=== PATIENT | female | born 1955 | race Caucasian/White ===

== ENCOUNTER 2018-10-05 08:20 | Day surgery (SDC) | payer BC, MEDICARE ==
[~2018-10-05] VITALS: Ht 157.5 cm; Wt 57.7 kg
[~2018-10-05 08:20] MED LIST: ASPI325 PO; ATOR10 PO; CLOP75 PO; Humalog100 UNIT/1 SC; INSLIS75I; INSULANI; INSULANPEN; LISI5 PO; METO25 PO
[2018-10-05] MEDS ORDERED: LOSA25 (08:57)
--- NOTE | 2018-10-05 09:14 | NUR ---
10/05/18 0914 Viktor Warren CALL LIGHT WITHIN REACH
== END 2018-10-05 10:31 | disposition home or self-care (01) ==
LOC: ORSCSDS 08:20
PROVIDERS: Internal Medicine Gastroenterology
PROC: 0DBL8ZX Excision of Transverse Colon, Via Natural or Artificial Opening Endoscopic, Diagnostic (ICD-10-PCS; principal; 2018-10-05 09:45)
DX: Z12.11 Encounter for screening for malignant neoplasm of colon (principal); D12.3 Benign neoplasm of transverse colon; E11.9 Type 2 diabetes mellitus without complications; I25.10 Atherosclerotic heart disease of native coronary artery without angina pectoris; Z79.899 Other long term (current) drug therapy
CPT/HCPCS: 82947; 88305; J7120

== ENCOUNTER → 2019-05-24 | Outpatient (CLI) | payer MEDICARE, OTHER ==
[~2019-05-24] MED LIST changes: +LOSA25
[2019-05-26 15:07] LABS: HPV 16 Negative (Negative); HPV 18 Negative (Negative); HPV OTHER HR TYPES Negative (Negative)
== END ==
LOC: LAB 15:32 → LAB SHORT 15:32
PROVIDERS: Obstetrics & Gynecology Gynecology
DX: Z91.89 Other specified personal risk factors, not elsewhere classified (principal)
CPT/HCPCS: 87624; G0123

== ENCOUNTER → 2020-01-24 | Outpatient (CLI) | payer OTHER ==
[2020-01-24 16:13] LABS: Microalb/Creat Ratio UR, Rand 436.275 mg/g (0.000-30.000)
== END | disposition home or self-care (01) ==
LOC: LAB EV 11:30
PROVIDERS: Hospitalist
DX: I10 Essential (primary) hypertension (principal)
CPT/HCPCS: 82043; 82570

== ENCOUNTER 2020-11-25 16:54 | Observation (INO) | payer OTHER ==
[~2020-11-25] VITALS: Ht 154.9 cm; Wt 50.2 kg
[~2020-11-25 16:54] MED LIST changes: -ASPI325 PO; +ASPI325EC PO; +Allergy Relief10 M1 PO; +BASAGLAR K100 UNIT/1 SC; +Fibercon625 MG PO; -INSULANPEN; +LEVSOD25 PO; -LOSA25; +LOSA25 PO; +MAGNESIUM OXID500 MG PO; +OYSTER SHELL 51 EACH PO
[2020-11-25 17:32] LABS: Base Excess Venous 5.3 mmol/L; PCO2 Venous 52.7 mmHg (38-42); pH Blood Venous 7.37 (7.34-7.37)
[2020-11-25 17:38] LABS: BASOPHILS ABSOLUTE AUTO 0.02 K/mm3 (0.00-0.23); BASOPHILS PERCENT AUTO 0 % (0-2); EOSINOPHILS ABSOLUTE AUTO 0.05 K/mm3 (0.00-0.68); EOSINOPHILS PERCENT AUTO 1 % (0-6); Hematocrit 42.5 % (33.0-51.0); Hemoglobin 14.3 g/dL (11.5-16.0); IMMATURE GRAN ABSOLUTE AUTO 0.03 K/mm3 (0.00-0.10); IMMATURE GRAN PERCENT AUTO 0 % (0-1); LYMPHOCYTES ABSOLUTE AUTO 1.24 K/mm3 (0.84-5.20); LYMPHOCYTES PERCENT AUTO 18 % (21-46); MONOCYTES ABSOLUTE AUTO 0.43 K/mm3 (0.16-1.47); MONOCYTES PERCENT AUTO 6 % (4-13); Mean Corpuscular HGB 28.3 pg (26.0-34.0); Mean Corpuscular HGB Conc 33.6 g/dL (31.5-36.5); Mean Corpuscular Volume 84 fL (80-100); Mean Platelet Volume 11.7 fL (9.1-12.4); NEUTROPHILS ABSOLUTE AUTO 4.97 K/mm3 (1.96-9.15); NEUTROPHILS PERCENT AUTO 74 % (41-73); Platelet Count 201 K/mm3 (150-400); RDW Coefficient Variation 13.6 % (11.7-14.2); Red Blood Cell Count 5.05 M/mm3 (3.80-5.20); White Blood Cell Count 6.74 K/mm3 (4.00-11.30)
[2020-11-25] MEDS ORDERED: FURO40 PO (17:50)
[2020-11-25] MEDS ORDERED: ALDACTONE25 MG (17:51)
[2020-11-25 18:02] LABS: Magnesium, Blood 2.4 mg/dL (1.6-2.4)
[2020-11-25 18:19] LABS: Albumin, Blood 3.9 g/dL (3.4-5.0); Albumin/Globulin Ratio 1.2 (0.8-1.8); Bilirubin, Total 1.1 mg/dL (0.1-1.0); Bun/Creatinine Ratio 32.9 (12.0-20.0); Creatinine, Blood 1.58 mg/dL (0.40-1.00); Globulin, Blood 3.2 g/dL (2.2-4.0); Potassium, Blood 5.2 mmol/L (3.5-5.5); Total Protein, Blood 7.1 g/dL (6.4-8.2)
[2020-11-25 20:14] LABS: Glucose, Blood 570 mg/dL (70-99)
[2020-11-25 21:11] LABS: Anion Gap 7 mmol/L (6-16); Blood Urea Nitrogen 47 mg/dL (8-24); Bun/Creatinine Ratio 33.1 (12.0-20.0); CO2, Blood 31 mmol/L (21-32); Calcium, Blood 8.4 mg/dL (8.5-10.1); Chloride, Blood 94 mmol/L (98-108); Creatinine, Blood 1.42 mg/dL (0.40-1.00); Glomerular Filtration Rate 40 (60-); Phosphorus, Blood 3.4 mg/dL (2.5-4.9); Potassium, Blood 3.9 mmol/L (3.5-5.5)
[2020-11-25 21:12] LABS: Sodium, Blood 132 mmol/L (136-145)
[2020-11-26 00:40] LABS: Source, Urine Clean Catch
[2020-11-26 00:44] LABS: Appearance, Urine Clear (Clear); Bilirubin, Urine Neg (Neg); Blood, Urine Neg (Neg); Color, Urine Yellow (P-Yellow); Glucose Qualitative, Urine 4+ (Neg); Ketones, Urine Neg (Neg); Leukocyte Esterase, Urine Neg (Neg); Nitrite, Urine Neg (Neg); Protein, Urine Neg (Neg); Urobilinogen, Urine NORM (Normal)
[2020-11-26 04:15] LABS: BASOPHILS ABSOLUTE AUTO 0.03 K/mm3 (0.00-0.23); BASOPHILS PERCENT AUTO 1 % (0-2); EOSINOPHILS ABSOLUTE AUTO 0.12 K/mm3 (0.00-0.68); EOSINOPHILS PERCENT AUTO 2 % (0-6); Hematocrit 34.9 % (33.0-51.0); Hemoglobin 12.2 g/dL (11.5-16.0); IMMATURE GRAN ABSOLUTE AUTO 0.01 K/mm3 (0.00-0.10); IMMATURE GRAN PERCENT AUTO 0 % (0-1); LYMPHOCYTES ABSOLUTE AUTO 2.16 K/mm3 (0.84-5.20); LYMPHOCYTES PERCENT AUTO 41 % (21-46); MONOCYTES ABSOLUTE AUTO 0.45 K/mm3 (0.16-1.47); MONOCYTES PERCENT AUTO 9 % (4-13); Mean Corpuscular HGB 28.2 pg (26.0-34.0); Mean Corpuscular Volume 81 fL (80-100); Mean Platelet Volume 11.4 fL (9.1-12.4); NEUTROPHILS ABSOLUTE AUTO 2.53 K/mm3 (1.96-9.15); NEUTROPHILS PERCENT AUTO 48 % (41-73); Platelet Count 178 K/mm3 (150-400); RDW Coefficient Variation 13.3 % (11.7-14.2); RDW Standard Deviation 39.3 fL (35.1-46.3); Red Blood Cell Count 4.33 M/mm3 (3.80-5.20)
[2020-11-26 04:43] LABS: Albumin, Blood 2.8 g/dL (3.4-5.0); Anion Gap 7 mmol/L (6-16); Blood Urea Nitrogen 36 mg/dL (8-24); Bun/Creatinine Ratio 32.4 (12.0-20.0); CO2, Blood 31 mmol/L (21-32); Calcium, Blood 8.1 mg/dL (8.5-10.1); Chloride, Blood 106 mmol/L (98-108); Creatinine, Blood 1.11 mg/dL (0.40-1.00); Glomerular Filtration Rate 53 (60-); Glucose, Blood 71 mg/dL (70-99); Phosphorus, Blood 3.4 mg/dL (2.5-4.9); Potassium, Blood 3.3 mmol/L (3.5-5.5); Sodium, Blood 144 mmol/L (136-145)
--- NOTE | 2020-11-26 06:02 | NUR ---
SHIFT SUMMARY PT RESTED WELL THROUGH NIGHT AFTER BEING ADMITTED. ALERT AND ORIENTED - ABLE TO MAKE NEEDS KNOWN. TELENSR, SATS >90% ON ROOM AIR. Q4 CBG CHECKS. CBG DID DROP TO 44 AT ONE POINT, GAVE 25ML OF D50, AND ENCOURAGED PO INTAKE. DIET ORDERED FOR PATIENT. SBA TO BATHROOM. VOIDS TO TOILET - 800ML UOP. NO BM. 1L IVF. NO C/O PAIN. CALL LIGHT WITIN REACH, BED IN LOWEST POSITION. WILL CONTINUE TO MONITOR.
[2020-11-26 08:26] LABS: Glucose, Blood 192 mg/dL (70-99)
--- NOTE | 2020-11-26 10:23 | NUR ---
ASSUMED CARE OF PT AT THIS TIME FROM ZENAIDA LOUIS.
--- NOTE | 2020-11-26 14:04 | NUR ---
CARE COORDINATION REFERRAL - ADMIT: 11/25/20 DISCHARGE: 11/26/20DX: HYPERGLYCEMIA CC: KWILCOX SUZAN CALL: PT AT HOME RESIDENCE: HOME CAREGIVER: SELF DX: HTN, CAD, DM-TYPE 1, HYPERLIPIDEMIA, SEE LIST DME: DM SUPPLIES CCM: REFERRAL 08/2020 HOME HEALTH: NONE SUMMARY: 11/26/20- PER CHART REVIEW WITH DR. LEVI, PT IS STABLE FOR DISCHARGE. HE WOULD LIKE TO MAKE SURE THAT THE PT HAS A FOLLOW UP WITH DR. IRINA WEBB AFTER DISCHARGE DUE TO POOR MANAGEMENT OF BLOOD SUGARS THAT RESULTED IN ADMISSION. WENT AND SPOKE WITH PT AND REVIEWED SUZAN LETTER. PT ACKNOWLEDGED UNDERSTANDING AND ALSO THAT SHE WILL NEED TO HAVE A FOLLOW UP WITH DR. IRINA WEBB. SHE DOES NOT NEED A RIDE DUE TO DRIVING HERSELF TO THE HOSPITAL AND SHE FEELS OK DRIVING HERSELF HOME. SHE LIVES AT HOME WITH HER WHO DOES HELP HER WITH THINGS IN THE HOME. -JIN
--- NOTE | 2020-11-26 14:06 | NUR ---
PT PROVIDED WITH DISCHARGE TEACHING. MED REC AND FOLLOW UP APPOINTMENTS REVIEWED, PT STATES SHE HAS NO QUESTIONS OR CONCERNS AT THIS TIME. NO NEW PRESCRIPTIONS TO SEND TO PHARMACY. IV REMOVED. NO FURTHER DISCHARGE NEEDS IDENTIFIED AT THIS TIME.
== END 2020-11-26 13:52 | disposition home or self-care (01) ==
LOC: ER 16:54 → PCU 16:55
PROVIDERS: Emergency Medicine; Nurse Practitioner Acute Care; Physician Assistant; ADMIT Internal Medicine
DX: E10.65 Type 1 diabetes mellitus with hyperglycemia (principal); E10.22 Type 1 diabetes mellitus with diabetic chronic kidney disease; I12.9 Hypertensive chronic kidney disease with stage 1 through stage 4 chronic kidney disease, or unspecified chronic kidney disease; N18.30 Chronic kidney disease, stage 3 unspecified; N17.9 Acute kidney failure, unspecified; E78.5 Hyperlipidemia, unspecified; E03.9 Hypothyroidism, unspecified; I27.20 Pulmonary hypertension, unspecified; I25.10 Atherosclerotic heart disease of native coronary artery without angina pectoris; Z95.5 Presence of coronary angioplasty implant and graft; Z79.82 Long term (current) use of aspirin; Z87.891 Personal history of nicotine dependence
CPT/HCPCS: 36415; 71046; 80053; 80069; 81003; 82010; 82803; 82947; 83036; 83735; 84100; 85025; 93005; 93010; 96361; 96365; 96366; 96372; 96375; 99285-25; A9270; G0378; J0610; J1650; J1815; J3475; J7030

== ENCOUNTER 2020-12-16 15:29 | Emergency (ER) | payer OTHER ==
[~2020-12-16] VITALS: Ht 154.9 cm; Wt 53.5 kg
[~2020-12-16 15:29] MED LIST changes: +ALDACTONE25 MG; +FURO40 PO
[2020-12-16 16:11] LABS: BASOPHILS ABSOLUTE AUTO 0.02 K/mm3 (0.00-0.23); BASOPHILS PERCENT AUTO 0 % (0-2); EOSINOPHILS ABSOLUTE AUTO 0.05 K/mm3 (0.00-0.68); EOSINOPHILS PERCENT AUTO 1 % (0-6); Hematocrit 40.4 % (33.0-51.0); Hemoglobin 13.2 g/dL (11.5-16.0); IMMATURE GRAN ABSOLUTE AUTO 0.01 K/mm3 (0.00-0.10); IMMATURE GRAN PERCENT AUTO 0 % (0-1); LYMPHOCYTES ABSOLUTE AUTO 1.41 K/mm3 (0.84-5.20); LYMPHOCYTES PERCENT AUTO 27 % (21-46); MONOCYTES ABSOLUTE AUTO 0.41 K/mm3 (0.16-1.47); MONOCYTES PERCENT AUTO 8 % (4-13); Mean Corpuscular HGB 27.6 pg (26.0-34.0); Mean Corpuscular HGB Conc 32.7 g/dL (31.5-36.5); Mean Corpuscular Volume 84 fL (80-100); Mean Platelet Volume 10.8 fL (9.1-12.4); NEUTROPHILS ABSOLUTE AUTO 3.42 K/mm3 (1.96-9.15); NEUTROPHILS PERCENT AUTO 64 % (41-73); Platelet Count 233 K/mm3 (150-400); RDW Coefficient Variation 14.3 % (11.7-14.2); RDW Standard Deviation 44.1 fL (35.1-46.3); Red Blood Cell Count 4.79 M/mm3 (3.80-5.20); White Blood Cell Count 5.32 K/mm3 (4.00-11.30)
[2020-12-16 16:33] LABS: Albumin, Blood 3.1 g/dL (3.4-5.0); Albumin/Globulin Ratio 0.9 (0.8-1.8); Bilirubin, Total 0.6 mg/dL (0.1-1.0); Bun/Creatinine Ratio 25.6 (12.0-20.0); Calcium, Blood 8.6 mg/dL (8.5-10.1); Creatinine, Blood 1.21 mg/dL (0.40-1.00); Globulin, Blood 3.4 g/dL (2.2-4.0); Potassium, Blood 4.4 mmol/L (3.5-5.5); Total Protein, Blood 6.5 g/dL (6.4-8.2); Troponin I 0.04 ng/mL (0.000-0.040)
[2020-12-17] MEDS ORDERED: SPIRONOLACTONE25 MG PO (21:25)
[2020-12-17] MEDS ORDERED: METOPROLOL TART25 MG PO (21:26)
[2020-12-17] MEDS ORDERED: FUROSEMIDE20 MG PO (21:26)
[2020-12-17] MEDS ORDERED: LOSARTAN POTASS25 M2 PO (21:26)
== END 2020-12-16 21:17 | disposition home or self-care (01) ==
LOC: ER 15:29
PROVIDERS: Emergency Medicine
DX: I50.9 Heart failure, unspecified (principal); I25.2 Old myocardial infarction; Z87.891 Personal history of nicotine dependence; Z79.4 Long term (current) use of insulin; Z79.82 Long term (current) use of aspirin; Z79.899 Other long term (current) drug therapy
CPT/HCPCS: 36415; 71046; 80053; 83880; 84484; 85025; 93005; 93010; 93306; 99283-25

== ENCOUNTER 2020-12-17 17:42 | Inpatient (IN) | payer OTHER, MEDICARE ==
[~2020-12-17] VITALS: Ht 175.3 cm; Wt 54.0 kg
[2020-12-17 19:18] LABS: BASOPHILS ABSOLUTE AUTO 0.01 K/mm3 (0.00-0.23); BASOPHILS PERCENT AUTO 0 % (0-2); EOSINOPHILS ABSOLUTE AUTO 0.08 K/mm3 (0.00-0.68); EOSINOPHILS PERCENT AUTO 2 % (0-6); Hemoglobin 12.6 g/dL (11.5-16.0); IMMATURE GRAN ABSOLUTE AUTO 0.01 K/mm3 (0.00-0.10); IMMATURE GRAN PERCENT AUTO 0 % (0-1); LYMPHOCYTES ABSOLUTE AUTO 1.53 K/mm3 (0.84-5.20); LYMPHOCYTES PERCENT AUTO 29 % (21-46); MONOCYTES ABSOLUTE AUTO 0.37 K/mm3 (0.16-1.47); MONOCYTES PERCENT AUTO 7 % (4-13); Mean Corpuscular HGB 28.3 pg (26.0-34.0); Mean Corpuscular HGB Conc 33.2 g/dL (31.5-36.5); Mean Corpuscular Volume 85 fL (80-100); Mean Platelet Volume 10.6 fL (9.1-12.4); NEUTROPHILS ABSOLUTE AUTO 3.34 K/mm3 (1.96-9.15); NEUTROPHILS PERCENT AUTO 63 % (41-73); Platelet Count 211 K/mm3 (150-400); RDW Coefficient Variation 14.3 % (11.7-14.2); Red Blood Cell Count 4.45 M/mm3 (3.80-5.20); White Blood Cell Count 5.34 K/mm3 (4.00-11.30)
[2020-12-17 19:43] LABS: Albumin, Blood 3.1 g/dL (3.4-5.0); Bilirubin, Total 0.7 mg/dL (0.1-1.0); Bun/Creatinine Ratio 23.1 (12.0-20.0); Calcium, Blood 8.7 mg/dL (8.5-10.1); Creatinine, Blood 1.43 mg/dL (0.40-1.00); Globulin, Blood 3.1 g/dL (2.2-4.0); Total Protein, Blood 6.2 g/dL (6.4-8.2); Troponin I 0.056 ng/mL (0.000-0.040)
[2020-12-17] MEDS ORDERED: SPIRONOLACTONE25 MG PO (21:25)
[2020-12-17] MEDS ORDERED: METOPROLOL TART25 MG PO (21:26)
[2020-12-17] MEDS ORDERED: FUROSEMIDE20 MG PO (21:26)
[2020-12-17] MEDS ORDERED: LOSARTAN POTASS25 M2 PO (21:26)
[2020-12-17 21:27] LABS: International Normalized Ratio 1.02; Prothrombin Time Results 10.9 Sec (9.7-11.5)
--- NOTE | 2020-12-18 04:22 | NUR ---
SUMMARY PT ARRIVED TO FLOOR IN NO DISTRESS. PT DENIES SOB OR CX PAIN. HEPARIN DRIP CONTINUES ORDERED. PT HAS BEEN SLEEPING WELL. PT CURRENTLY SLEEPING AND BREATHING EASY. CALL LIGHT IN REACH.
[2020-12-18 05:56] LABS: BASOPHILS ABSOLUTE AUTO 0.04 K/mm3 (0.00-0.23); BASOPHILS PERCENT AUTO 1 % (0-2); EOSINOPHILS ABSOLUTE AUTO 0.09 K/mm3 (0.00-0.68); EOSINOPHILS PERCENT AUTO 2 % (0-6); Hematocrit 39.5 % (33.0-51.0); Hemoglobin 12.7 g/dL (11.5-16.0); IMMATURE GRAN ABSOLUTE AUTO 0.01 K/mm3 (0.00-0.10); IMMATURE GRAN PERCENT AUTO 0 % (0-1); LYMPHOCYTES ABSOLUTE AUTO 1.68 K/mm3 (0.84-5.20); LYMPHOCYTES PERCENT AUTO 32 % (21-46); MONOCYTES ABSOLUTE AUTO 0.47 K/mm3 (0.16-1.47); MONOCYTES PERCENT AUTO 9 % (4-13); Mean Corpuscular HGB 27.8 pg (26.0-34.0); Mean Corpuscular HGB Conc 32.2 g/dL (31.5-36.5); Mean Corpuscular Volume 86 fL (80-100); NEUTROPHILS PERCENT AUTO 57 % (41-73); Platelet Count 215 K/mm3 (150-400); RDW Coefficient Variation 14.3 % (11.7-14.2); RDW Standard Deviation 44.7 fL (35.1-46.3); Red Blood Cell Count 4.57 M/mm3 (3.80-5.20); White Blood Cell Count 5.29 K/mm3 (4.00-11.30)
[2020-12-18 06:44] LABS: Bilirubin, Total 0.7 mg/dL (0.1-1.0); Calcium, Blood 8.4 mg/dL (8.5-10.1); Creatinine, Blood 1.2 mg/dL (0.40-1.00); Globulin, Blood 3.1 g/dL (2.2-4.0); Potassium, Blood 3.4 mmol/L (3.5-5.5); Total Protein, Blood 6.1 g/dL (6.4-8.2)
--- NOTE | 2020-12-18 07:22 | NUR ---
0645 NOTIFIED BY LAB PT GLUCOSE- 49. PT GIVEN 1/2 AMP D50 AND APPLE JUICE PER ORDERS FROM DR HERNANDEZ. PT FOUND ALERT AND AWAKE. PT HAS BEEN NPO SINCE ARRIVING TO FLOOR. PT WAS GIVEN ORDERED SEMGLEE LAST NIGHT.
[2020-12-18 08:40] LABS: Influenza A, PCR NEGATIVE (NEGATIVE); Influenza B, PCR NEGATIVE (NEGATIVE); Resp Syncytial Virus, PCR NEGATIVE (NEGATIVE); SARS-Cov-2 (COVID-19) PCR, MMC NEGATIVE (NEGATIVE)
--- NOTE | 2020-12-18 14:54 | NUR ---
TRANSFER PT TAKEN TO THE [facility], PT WILL GO TO PCU OR ICU POST PROCEDURE, WAITING FOR ROOM ASSIGNMENT
--- NOTE | 2020-12-18 15:33 | NUR ---
ADMIT: 12/17/20 DISCHARGE: DX: Left Ventricle Mural Thrombus CC:kwilcox SUZAN CALL: RESIDENCE: home CAREGIVER: pt DX: HTN, CAD, DM- type 1, Diastolic dysfunction DME: DM supplies CCM: Referral 2020 (closed) HOME HEALTH: none SUMMARY: Admit: 12/17/20 12/18/20- per chart review with Dr. Pickett, pt was admitted due to 2+ cm clot in left ventricle after regional liaison read her recent echo. She reports pt [place] [facility]. No plan to d/c today. -yesica
--- NOTE | 2020-12-18 15:44 | NUR ---
TRANSFER REPORT TO SABRINA ESTEVEZ, PT TO GO TO PCU 6, BELONGINGS BROUGHT DOWN
--- NOTE | 2020-12-18 16:15 | NUR ---
ASSUMED CARE FROM HEART CENTER STAFF POST ANGIO, NO SEDATION GIVEN FOR PROCEDURE. ARM BOARD IN PLACE WITH TR BAND TO RIGHT WRIST. MOVES ALL FIVE RIGHT HAND FINGERS, CAP REFILL <3. RADIAL PULSE PALPABLE.
--- NOTE | 2020-12-18 16:20 | NUR ---
ALERTED BY GROUND INSTRUCTOR ADVANCED THAT PT'S PERSONALITY SEEMED TO CHANGE. IN ROOM TO ASSESS. APPEARS AGITATED AND STARING AT TR BAND AND ARM BOARD, MUMBLES DOESN'T KNOW WHAT ITS FOR. UNABLE TO FORM WORDS WHEN ASKED QUESTIONS, STARES FORWARD. UNABLE TO FOLLOW COMMANDS WHEN ASKS TO SQUEEZE HANDS. VULCANIZING MACHINE OPERATOR NOTIFIED, DR. Astudillo AND DR. CANNON CALLED TO ROOM. STAT CT ORDERED. HEPARIN CONTINUES TO INFUSE AT 15UNIT/KG. AFTER SEVERAL MINUTES IS ABLE TO LIFT ARMS WHEN ASKED. REMAINS CONFUSED AND ONLY ABLE TO ANSWER BASIC QUESTIONS SUCH NAME AND SPOUSES NAME.
--- NOTE | 2020-12-18 17:56 | NUR ---
APPEARS BACK TO BASELINE NEUROLOGICALLY AT THIS TIME. SPEAKING IN FULL SENTENCES, MOVING ALL FOUR EXTREMETIES, A/A/OX4. SPOUSE AT BEDSIDE, AWAITING MRI. ARM BOARD AND TR BAND IN PLACE. RADIAL PULSE PALPABLE, BLEEDING FROM SITE. HEPARIN INFUSING AT 15UNITS/KG, VSS, WILL CONTINUE TO MONITOR UNTIL CHANGE OF SHIFT.
--- NOTE | 2020-12-18 21:28 | NUR ---
CRITICAL LAB LAB CALLED W/ CRITICAL LAB VALUE: PTT 121. CALL PLACED TO PHARMACY. PHARMACY WITH ORDERS TO TURN HEPARIN DRIP OFF FOR ONE HOUR, THEN RESTART AT LOWER RATE. SEE EMAR.
--- NOTE | 2020-12-19 00:01 | NUR ---
TR BAND UPON CARE ASSUMPTION, THIS RN BEGAN DEFLATING PT'S R RADIAL SITE AT APPROX 2000. SOME DRIED SCANT BLOOD AND BRUISING AROUND SITE, NO HEMATOMA. NO ACTIVE BLEEDING. TR BAND REMOVED AT 2345. OPSITE DRESSING PLACED ON SITE. NO BLEEDING, SLIGHT BRUISING PROXIMAL TO SITE. ARM BOARD IN PLACE.
[2020-12-19 03:14] LABS: BASOPHILS ABSOLUTE AUTO 0.02 K/mm3 (0.00-0.23); BASOPHILS PERCENT AUTO 0 % (0-2); EOSINOPHILS ABSOLUTE AUTO 0.07 K/mm3 (0.00-0.68); EOSINOPHILS PERCENT AUTO 1 % (0-6); Hematocrit 34.4 % (33.0-51.0); Hemoglobin 11.5 g/dL (11.5-16.0); IMMATURE GRAN ABSOLUTE AUTO 0.01 K/mm3 (0.00-0.10); IMMATURE GRAN PERCENT AUTO 0 % (0-1); LYMPHOCYTES ABSOLUTE AUTO 1.53 K/mm3 (0.84-5.20); LYMPHOCYTES PERCENT AUTO 29 % (21-46); MONOCYTES ABSOLUTE AUTO 0.46 K/mm3 (0.16-1.47); MONOCYTES PERCENT AUTO 9 % (4-13); Mean Corpuscular HGB 27.8 pg (26.0-34.0); Mean Corpuscular HGB Conc 33.4 g/dL (31.5-36.5); Mean Corpuscular Volume 83 fL (80-100); Mean Platelet Volume 10.6 fL (9.1-12.4); NEUTROPHILS ABSOLUTE AUTO 3.15 K/mm3 (1.96-9.15); NEUTROPHILS PERCENT AUTO 60 % (41-73); Platelet Count 182 K/mm3 (150-400); RDW Standard Deviation 42.9 fL (35.1-46.3); Red Blood Cell Count 4.14 M/mm3 (3.80-5.20); White Blood Cell Count 5.24 K/mm3 (4.00-11.30)
[2020-12-19 03:29] LABS: Bun/Creatinine Ratio 23.6 (12.0-20.0); Calcium, Blood 8.1 mg/dL (8.5-10.1); Creatinine, Blood 1.27 mg/dL (0.40-1.00); Potassium, Blood 4.1 mmol/L (3.5-5.5)
--- NOTE | 2020-12-19 05:56 | NUR ---
SHIFT SUMMARY PT A&OX4. NO ACUTE CHANGES THIS SHIFT. SP02>92% ON RA. TELEMETRY READS SR, HR 60'S-90'S. PT BP SOFT. PT HAD TRBAND UPON CARE ASSUMPTION, TR BAND REMOVED @ 2345, SEE PREVIOUS NOTE. NO BLEEDING, NO HEMATOMA, ARM BOARD IN PLACE. PT ADHERING TO SITE GUIDELINES, NO LIFTING, BENDING ETC. PT UP TO BATHROOM THIS SHIFT TO VOID. HEPARIN AND NS INFUSING PER EMAR. PT SLEPT T/O NIGHT. CALL LIGHT IN REACH. WILL GIVE REPORT TO ONCOMING NURSE.
--- NOTE | 2020-12-19 08:03 | NUR ---
pt laying in bed awake, oysterman took glucose which was 30, immediately gave juice and soada with some cheeze, recheck was 71. her mentation is much better and asking to speak with Dr. Cisneros, spouce is on the phone with her. follows commands well, denies any complaints of sob dizziness or pain, lungs are clear t/o, resp even and unlabored, no cough noted, hrr, tele in place running sr per monitor, see strip, no edema noted, ppp+1, cap refill <3sec, vs stable, afebrile, iv site is clear and patent, btx4, abd flat soft nontender, voids without diff, skin c/w/d, maew, geospatial engineer are = dpfe = leopoldo, smile is symetrical, call light in reach, was notified she is able to have a conversation.
--- NOTE | 2020-12-19 14:45 | NUR ---
12/19/20- PER CHART REVIEW WITH DR. CANNON, PT HAD CATH PROCEDURE YESTERDAY AND WHEN SHE CAME BACK TO HER ROOM, PT WAS NOT ABLE TO SPEAK. HER BG WAS LOW, PT WAS GIVEN OJ AND SHE STILL WASN'T ABLE TO SPEAK. PT WAS SENT TO HAVE CT, WHEN SHE RETURNED, PT ASKED WHAT WAS HAPPENING WITH NOT RECOLLECTION OF RECENT PRIOR EVENTS. DR. CANNON CALLED [facility] NEUROLOGIST AND THEY STATED THAT PT MOST LIKELY HAD TIA A RESULT OF THE CATH AND THROMBUS IN HEART. DISCUSSED WITH DOCTOR THAT PT IS NOT CONTROLLING HER DM AND NOT CHECKING BLOOD SUGARS. PT HAS CONCERNS ABOUT THE FINANCIAL PART OF COVERING A CONTINUOUS MONITOR. SHE STATED THAT PT WOULD BENEFIT WITH A DEXCO MONITOR BUT THIS IS EXPENSIVE COMPARED TO THE FREE STYLE MONITOR. JACE IS GOING TO LOOK INTO GETTING PT ASSISTANCE FOR GETTING MONITOR AND ALSO REACH OUT TO HER INSURANCE TO SEE IF THEY HAVE SOME ASSISTANCE TO HELP COVER THE COST OF DEVICE AND MEDICATION.-JIN 12/18/20- PER CHART REVIEW WITH DR. CANNON, PT WAS ADMITTED DUE TO 2+ CM CLOT IN LEFT VENTRICLE AFTER DOCUMENT COORDINATOR READ HER RECENT ECHO. SHE REPORTS PT IS SCHEDULED TO GO TO THE [facility] TODAY. NO PLAN TO D/C TODAY. -JIN
--- NOTE | 2020-12-19 17:58 | NUR ---
SUMMARY: Admit: /10/[address] Rebollar, she would like Kiki to have a dexcom for dm management.s/w P3 case consultant Iris [phone], she will try to find out of pocket cost for moniter and supplies, patient is concerned with the cost of the copay. Met with Kiki and today, they would like to know the saini, they could use help with the cost, but they feel its important to get the DEXCOM due to her current heart concerns. Iris will johnnie me back tommorrow with cost of system and copays.
--- NOTE | 2020-12-19 18:32 | NUR ---
pt doing ok, no complaints, or changes this shift. spouce in to see her, and had a meeting with the DrNasir today. no acute changes, call light in reach.
[2020-12-20 04:35] LABS: BASOPHILS ABSOLUTE AUTO 0.02 K/mm3 (0.00-0.23); BASOPHILS PERCENT AUTO 0 % (0-2); EOSINOPHILS ABSOLUTE AUTO 0.12 K/mm3 (0.00-0.68); EOSINOPHILS PERCENT AUTO 2 % (0-6); Hematocrit 34.6 % (33.0-51.0); Hemoglobin 11.5 g/dL (11.5-16.0); IMMATURE GRAN ABSOLUTE AUTO 0.02 K/mm3 (0.00-0.10); IMMATURE GRAN PERCENT AUTO 0 % (0-1); LYMPHOCYTES PERCENT AUTO 29 % (21-46); MONOCYTES ABSOLUTE AUTO 0.46 K/mm3 (0.16-1.47); MONOCYTES PERCENT AUTO 8 % (4-13); Mean Corpuscular HGB 27.4 pg (26.0-34.0); Mean Corpuscular HGB Conc 33.2 g/dL (31.5-36.5); Mean Corpuscular Volume 83 fL (80-100); Mean Platelet Volume 11.1 fL (9.1-12.4); NEUTROPHILS ABSOLUTE AUTO 3.47 K/mm3 (1.96-9.15); NEUTROPHILS PERCENT AUTO 60 % (41-73); Platelet Count 180 K/mm3 (150-400); RDW Standard Deviation 42.3 fL (35.1-46.3); Red Blood Cell Count 4.19 M/mm3 (3.80-5.20); White Blood Cell Count 5.79 K/mm3 (4.00-11.30)
[2020-12-20 04:56] LABS: Bun/Creatinine Ratio 26.4 (12.0-20.0); Calcium, Blood 8.5 mg/dL (8.5-10.1); Creatinine, Blood 1.25 mg/dL (0.40-1.00); Potassium, Blood 4.6 mmol/L (3.5-5.5)
--- NOTE | 2020-12-20 05:26 | NUR ---
SHIFT SUMMARY NO ACUTE CHANGES THIS SHIFT. PT A&OX4. SP02>90% ON RA. TELEMETRY READS SR, HR 90'S. PT UP TO BATHROOM TO VOID THIS SHIFT. PT HAS R RADIAL SITE FROM PREVIOUS DAY, RECOVERED, ARM BOARD IN PLACE. NO BLEEDING, BRUISING, HEMATOMA. SOFT. PT SLEPT T/O NIGHT. PT DENIED PAIN. CALL LIGHT IN REACH. WILL GIVE REPORT TO ONCOMING NURSE.
--- NOTE | 2020-12-20 08:23 | NUR ---
PT SITTING UP IN BED EATING BREAKFAST, A/OX3, PLEASANT AND COOPERATIVE WITH CARE, FOLLOWS COMMANDS WELL, DENIES ANY COMPLAINTS, STATES SHE IS GOING HOME TODAY, LUNGS ARE CLEAR T/O, ON R/A, RESP EVEN AND UNLABORED, NO COUGH NOTED, HRR, TELE IN PLACE RUNNING SR PER MONITOR, SEE STRIP, NO EDEMA NOTED, PPP+2, CAP REFILL <3SEC, VS STABLE, AFEBRILE, IV SITE IS CLEAR AND PATENT, BTX4, ABD FLAT SOFT NONTENDER, VOIDS WITHOUT DIFF, SKIN C/W/D, HAS TR BAND SITE THAT IS CLEAR WITH ARM BOARD IN PLACE, MAEW, AMBULATES INDEP, MISTY, CALL LIGHT IN REACH.
[2020-12-20] MEDS ORDERED: Aspir 8181 MG PO (12:26)
[2020-12-20] MEDS ORDERED: XARELTO15 MG PO (12:28)
[2020-12-20] MEDS ORDERED: ENTRESTO 24 MG1 EACH PO (12:29)
--- NOTE | 2020-12-20 13:19 | NUR ---
pt has been discharged to home, went over all instructions with her, she verbalized understanding, iv's x2 removed intact, new medications were faxed to her pharmacy, she has all her belongings, spouce here to take her home. left via wheelchair with helper teacher in attendence.
--- NOTE | 2020-12-20 13:49 | NUR ---
ADMIT: 12/17/20 DISCHARGE: 12/20/20 DX: Left Ventricle Mural Thrombus CC:kwilcox SUZAN CALL: Met with Kiki and , call Kiki for suzan- 1 week SUZAN physician RESIDENCE: home CAREGIVER: pt DX: HTN, CAD, DM- type 1, Diastolic dysfunction DME: DM supplies, Patient case for DEXCOM moniter to [facility] [employer]. CCM: Referral 2020 (closed) HOME HEALTH: none SUMMARY: Admit: 12/17/20 12/20/20 Received a call from Iris at , she called [employer] to discuss that they are a in network provider for [employer] and should cover DM supplies at 100%. I put in a case note to Ami, DR Bedoya , please order dexcom, cancel Sabino order with [facility]. Dr Rebollar had requested the change due to the large blood clot in her heart, dexcom has alarms and notifications that would work better for Kiki since she does not notice when her sugars are changing. Gave Kiki coupons for xaralto to reduce her out of pocket cost. Met with her prior to discharge, reviewed discharge checklist, Did not identify any addtional needs. Discussed suzan and expect follow up and 1 week visit to be scheduled Wednesday or Wednesday by telephone. cp 12/19/[address] Rebollar, she would like Kiki to have a dexcom for dm management. s/w P3 family caseworker Iris [phone], she will try to find out of pocket cost for moniter and supplies, patient is concerned with the cost of the copay. Met with Kiki and today, they would like to know the saini, they could use help with the cost, but they feel its important to get the DEXCOM due to her current heart concerns. Iris will johnnie me back tommorrow with cost of system and copays.
== END 2020-12-20 13:18 | disposition home or self-care (01) | DRG 286 ==
LOC: ER 17:42 → MEDS 17:43 → PCU 12-18 15:29
PROVIDERS: Emergency Medicine; Internal Medicine Cardiovascular Disease; Physician Assistant; ADMIT Internal Medicine
PROC: B2111ZZ Fluoroscopy of Multiple Coronary Arteries using Low Osmolar Contrast (ICD-10-PCS; principal; 2020-12-18)
DX: I25.10 Atherosclerotic heart disease of native coronary artery without angina pectoris (principal); I50.23 Acute on chronic systolic (congestive) heart failure; I13.0 Hypertensive heart and chronic kidney disease with heart failure and stage 1 through stage 4 chronic kidney disease, or unspecified chronic kidney disease; T82.855A Stenosis of coronary artery stent, initial encounter; R47.01 Aphasia; G45.9 Transient cerebral ischemic attack, unspecified; I51.3 Intracardiac thrombosis, not elsewhere classified; Z20.822 Contact with and (suspected) exposure to COVID-19; E87.6 Hypokalemia; E78.5 Hyperlipidemia, unspecified; I27.20 Pulmonary hypertension, unspecified; I34.0 Nonrheumatic mitral (valve) insufficiency; N18.9 Chronic kidney disease, unspecified; E10.22 Type 1 diabetes mellitus with diabetic chronic kidney disease; H91.90 Unspecified hearing loss, unspecified ear; I42.9 Cardiomyopathy, unspecified; E10.65 Type 1 diabetes mellitus with hyperglycemia; E10.649 Type 1 diabetes mellitus with hypoglycemia without coma; Z90.710 Acquired absence of both cervix and uterus; Z95.5 Presence of coronary angioplasty implant and graft; Z98.890 Other specified postprocedural states; Z87.891 Personal history of nicotine dependence; Z79.02 Long term (current) use of antithrombotics/antiplatelets; Z79.899 Other long term (current) drug therapy; Z79.4 Long term (current) use of insulin; Z79.82 Long term (current) use of aspirin; I25.2 Old myocardial infarction; Y83.8 Other surgical procedures as the cause of abnormal reaction of the patient, or of later complication, without mention of misadventure at the time of the procedure
CPT/HCPCS: 0241U; 36415; 70450; 76937; 80048; 80053; 82947; 83880; 84484; 85025; 85347; 85610; 85730; 92920; 93005; 93010; 93454; 93880; 96374; 96375; 96376; 99284-25; A9270; C1725; C1769; C1887; C1894; G0378; J1644; J1815; J1940; J2250; J3010; J7030; J7040; J7050; Q9967

== ENCOUNTER 2021-05-03 18:54 | Inpatient (IN) | payer OTHER ==
[~2021-05-03] VITALS: Ht 154.9 cm; Wt 55.4 kg
[~2021-05-03 18:54] MED LIST changes: +Aspir 8181 MG PO; +ENTRESTO 24 MG1 EACH PO; +FUROSEMIDE20 MG PO; +LOSARTAN POTASS25 M2 PO; +METOPROLOL TART25 MG PO; +SPIRONOLACTONE25 MG PO; +XARELTO15 MG PO
[2021-05-03 19:58] LABS: BASOPHILS ABSOLUTE AUTO 0.01 K/mm3 (0.00-0.23); BASOPHILS PERCENT AUTO 0 % (0-2); EOSINOPHILS ABSOLUTE AUTO 0.02 K/mm3 (0.00-0.68); EOSINOPHILS PERCENT AUTO 0 % (0-6); Hemoglobin 12.9 g/dL (11.5-16.0); IMMATURE GRAN ABSOLUTE AUTO 0.03 K/mm3 (0.00-0.10); IMMATURE GRAN PERCENT AUTO 0 % (0-1); LYMPHOCYTES ABSOLUTE AUTO 0.97 K/mm3 (0.84-5.20); LYMPHOCYTES PERCENT AUTO 9 % (21-46); MONOCYTES ABSOLUTE AUTO 0.36 K/mm3 (0.16-1.47); MONOCYTES PERCENT AUTO 3 % (4-13); Mean Corpuscular HGB 29.2 pg (26.0-34.0); Mean Corpuscular HGB Conc 33.9 g/dL (31.5-36.5); Mean Corpuscular Volume 86 fL (80-100); Mean Platelet Volume 10.6 fL (9.1-12.4); NEUTROPHILS ABSOLUTE AUTO 9.55 K/mm3 (1.96-9.15); NEUTROPHILS PERCENT AUTO 87 % (41-73); Platelet Count 191 K/mm3 (150-400); RDW Coefficient Variation 14.2 % (11.7-14.2); RDW Standard Deviation 45.3 fL (35.1-46.3); Red Blood Cell Count 4.42 M/mm3 (3.80-5.20); White Blood Cell Count 10.94 K/mm3 (4.00-11.30)
[2021-05-03 20:25] LABS: Albumin, Blood 3.5 g/dL (3.4-5.0); Albumin/Globulin Ratio 1.1 (0.8-1.8); Bilirubin, Total 0.9 mg/dL (0.1-1.0); Bun/Creatinine Ratio 30.6 (12.0-20.0); Calcium, Blood 9.1 mg/dL (8.5-10.1); Creatinine, Blood 1.34 mg/dL (0.40-1.00); Globulin, Blood 3.3 g/dL (2.2-4.0); Potassium, Blood 5.1 mmol/L (3.5-5.5); Total Protein, Blood 6.8 g/dL (6.4-8.2)
--- NOTE | 2021-05-04 04:49 | NUR ---
SHIFT SUMMARY AAOX4. NEW ADMIT THIS AM. NPO. DISCOMFORT AT TOLERABLE LEVEL SINCE ADMISSION. DENIES NAUSEA/EMESIS. ABD SOFT/TENDER WITH PALPATION. VSS. DENIES SOB/CP. TELEMETRY IN PLACE, NSR IN 80s THIS AM. ORIENTED TO ROOM + CALL LIGHT USE. DMI WITH Q6H CHEMBG CHECKS WHILE NPO. PT HAS BLUETOOTH CHEMBG MONITOR IN PLACE PER BASELINE. CURRENTLY PT IS RESTING IN BED WITH CALL LIGHT IN REACH.
[2021-05-04 05:04] LABS: Bun/Creatinine Ratio 27.9 (12.0-20.0); Calcium, Blood 8.1 mg/dL (8.5-10.1); Creatinine, Blood 1.36 mg/dL (0.40-1.00); Potassium, Blood 4.8 mmol/L (3.5-5.5)
[2021-05-04 09:47] LABS: BASOPHILS ABSOLUTE AUTO 0.01 K/mm3 (0.00-0.23); BASOPHILS PERCENT AUTO 0 % (0-2); EOSINOPHILS PERCENT AUTO 0 % (0-6); Hematocrit 32.6 % (33.0-51.0); Hemoglobin 10.8 g/dL (11.5-16.0); IMMATURE GRAN ABSOLUTE AUTO 0.05 K/mm3 (0.00-0.10); IMMATURE GRAN PERCENT AUTO 0 % (0-1); LYMPHOCYTES ABSOLUTE AUTO 1.04 K/mm3 (0.84-5.20); LYMPHOCYTES PERCENT AUTO 9 % (21-46); MONOCYTES ABSOLUTE AUTO 0.73 K/mm3 (0.16-1.47); MONOCYTES PERCENT AUTO 6 % (4-13); Mean Corpuscular HGB 29.1 pg (26.0-34.0); Mean Corpuscular HGB Conc 33.1 g/dL (31.5-36.5); Mean Corpuscular Volume 88 fL (80-100); Mean Platelet Volume 11.2 fL (9.1-12.4); NEUTROPHILS ABSOLUTE AUTO 10.05 K/mm3 (1.96-9.15); NEUTROPHILS PERCENT AUTO 85 % (41-73); Platelet Count 183 K/mm3 (150-400); RDW Coefficient Variation 14.6 % (11.7-14.2); RDW Standard Deviation 46.8 fL (35.1-46.3); Red Blood Cell Count 3.71 M/mm3 (3.80-5.20); White Blood Cell Count 11.88 K/mm3 (4.00-11.30)
[2021-05-04 13:38] LABS: International Normalized Ratio 1.03; Prothrombin Time Results 11.1 Sec (9.7-11.5)
--- NOTE | 2021-05-04 14:15 | NUR ---
HEPARIN DRIP STARTED
[2021-05-04 16:18] LABS: Source, Urine Clean Catch
[2021-05-04 16:23] LABS: Bilirubin, Urine Neg (Neg); Blood, Urine Neg (Neg); Color, Urine Yellow (P-Yellow); Glucose Qualitative, Urine Neg (Neg); Ketones, Urine Neg (Neg); Leukocyte Esterase, Urine Neg (Neg); Nitrite, Urine Neg (Neg); Protein, Urine 2+ (Neg); Urobilinogen, Urine NORM (Normal)
[2021-05-04 16:48] LABS: Appearance, Urine Clear (Clear); Bacteria Mod /hpf; Squamous Epithelial Cells Many /hpf (Few)
--- NOTE | 2021-05-04 18:40 | NUR ---
SHIFT SUMMARY PAIN MANAGED W/ x 2 DOSES OF DILAUDID. FEELS BOATED AFTER TAKING IN SMALL AMOUNTS OF CLEAR LQ's. TOLERATING WATER WELL THO. HEPARIN DRIP INFUSING & ABX SCHEDULED.
[2021-05-05 04:37] LABS: BASOPHILS ABSOLUTE AUTO 0.03 K/mm3 (0.00-0.23); BASOPHILS PERCENT AUTO 0 % (0-2); EOSINOPHILS ABSOLUTE AUTO 0.03 K/mm3 (0.00-0.68); EOSINOPHILS PERCENT AUTO 0 % (0-6); Hematocrit 30.5 % (33.0-51.0); Hemoglobin 10.1 g/dL (11.5-16.0); IMMATURE GRAN ABSOLUTE AUTO 0.06 K/mm3 (0.00-0.10); IMMATURE GRAN PERCENT AUTO 1 % (0-1); LYMPHOCYTES ABSOLUTE AUTO 1.23 K/mm3 (0.84-5.20); LYMPHOCYTES PERCENT AUTO 9 % (21-46); MONOCYTES ABSOLUTE AUTO 0.75 K/mm3 (0.16-1.47); MONOCYTES PERCENT AUTO 6 % (4-13); Mean Corpuscular HGB 29.2 pg (26.0-34.0); Mean Corpuscular HGB Conc 33.1 g/dL (31.5-36.5); Mean Corpuscular Volume 88 fL (80-100); Mean Platelet Volume 11.3 fL (9.1-12.4); NEUTROPHILS ABSOLUTE AUTO 11.02 K/mm3 (1.96-9.15); NEUTROPHILS PERCENT AUTO 84 % (41-73); Platelet Count 141 K/mm3 (150-400); RDW Coefficient Variation 14.9 % (11.7-14.2); RDW Standard Deviation 47.8 fL (35.1-46.3); Red Blood Cell Count 3.46 M/mm3 (3.80-5.20); White Blood Cell Count 13.12 K/mm3 (4.00-11.30)
[2021-05-05 04:57] LABS: Bun/Creatinine Ratio 20.7 (12.0-20.0); Calcium, Blood 8.1 mg/dL (8.5-10.1); Creatinine, Blood 1.93 mg/dL (0.40-1.00); Potassium, Blood 4.5 mmol/L (3.5-5.5)
--- NOTE | 2021-05-05 05:33 | NUR ---
SHIFT SUMMARY AAOX4. DISCOMFORT AT TOLERABLE LEVEL T/O NIGHT, DENIES NAUSEA/EMESIS. PT RESTED WELL T/O NIGHT. IVF TKO + HEP GTT PER PHARMACY. ABX PER ORDERS. NO ACUTE CHANGES OVER NIGHT. AWAITING AM LAB RESULTS AT THIS TIME. PT CURRENTLY RESTING WELL WITH CALL LIGHT IN REACH.
--- NOTE | 2021-05-05 12:16 | NUR ---
Admit: 05/03/21 Discharge: TBD Dx. acute appendicitis PCP: Enrique Schmidt MD. CC: [facility] Physician: Matt Schmidt MD. Contact/caregiver: No one listed in [place]. listed in [facility] [phone] / benefits: No Medicaid: No ([place])
--- NOTE | 2021-05-05 14:33 | NUR ---
CT PT ESCORTED VIA WC BY ROAD MAKER FOR CT.
--- NOTE | 2021-05-05 16:57 | NUR ---
SHIFT SUMMARY PT A&O X4. PT HAS DENIED PAIN THROUGHOUT SHIFT. PT TOLERATING CL DIET. THE PT'S ELEVATED BS WAS DISCUSSED W/ DR. CHILD. NEW ORDERS RECIEVED AND WILL START SS W/ CL DINNER PER DR. TALAVERA. PLAN OR TOMARROW. ORDERED TO STOP HEPARIN DRIP @ 2400, ORDERED NPO AFTER 2400. PT'S SPOUSE PRESENT DURING VISITING HOURS.
--- NOTE | 2021-05-05 17:11 | NUR ---
Update 05/05/21: Per chart review of notes from Dr. Garcia, Pt. is scheduled for [facility] tomorrow. I will meet with her when appropriate to discuss discharge planning and assist her in scheduling her hospital F/U appointments.
[2021-05-05 18:17] LABS: SARS-Cov-2 (COVID-19) PCR, MMC NEGATIVE (NEGATIVE)
--- NOTE | 2021-05-05 19:05 | NUR ---
recvd report from previous shift ZENAIDA Esteban and preceptor ZENAIDA Callahan, pt lying in bed a/o x 4, pleasant/cooperative, watching television, bed in lowest position, call light within reach, bed rails up x 2
--- NOTE | 2021-05-06 | NUR ---
discontinued heparin drip per orders in preparation for surgical intervention in the morning. pharmacy notified.
[2021-05-06 03:12] LABS: BASOPHILS ABSOLUTE AUTO 0.02 K/mm3 (0.00-0.23); BASOPHILS PERCENT AUTO 0 % (0-2); EOSINOPHILS ABSOLUTE AUTO 0.04 K/mm3 (0.00-0.68); EOSINOPHILS PERCENT AUTO 0 % (0-6); Hematocrit 29.6 % (33.0-51.0); Hemoglobin 10.1 g/dL (11.5-16.0); IMMATURE GRAN ABSOLUTE AUTO 0.05 K/mm3 (0.00-0.10); IMMATURE GRAN PERCENT AUTO 1 % (0-1); LYMPHOCYTES ABSOLUTE AUTO 0.86 K/mm3 (0.84-5.20); LYMPHOCYTES PERCENT AUTO 9 % (21-46); MONOCYTES ABSOLUTE AUTO 0.62 K/mm3 (0.16-1.47); MONOCYTES PERCENT AUTO 6 % (4-13); Mean Corpuscular HGB 29.5 pg (26.0-34.0); Mean Corpuscular HGB Conc 34.1 g/dL (31.5-36.5); Mean Corpuscular Volume 87 fL (80-100); Mean Platelet Volume 10.8 fL (9.1-12.4); NEUTROPHILS ABSOLUTE AUTO 8.36 K/mm3 (1.96-9.15); NEUTROPHILS PERCENT AUTO 84 % (41-73); Platelet Count 141 K/mm3 (150-400); RDW Coefficient Variation 14.6 % (11.7-14.2); RDW Standard Deviation 46.3 fL (35.1-46.3); Red Blood Cell Count 3.42 M/mm3 (3.80-5.20); White Blood Cell Count 9.95 K/mm3 (4.00-11.30)
[2021-05-06 03:30] LABS: Albumin, Blood 2.6 g/dL (3.4-5.0); Albumin/Globulin Ratio 0.9 (0.8-1.8); Bilirubin, Total 1.2 mg/dL (0.1-1.0); Bun/Creatinine Ratio 18.6 (12.0-20.0); Calcium, Blood 7.9 mg/dL (8.5-10.1); Creatinine, Blood 2.1 mg/dL (0.40-1.00); Magnesium, Blood 2.5 mg/dL (1.6-2.4); Phosphorus, Blood 2.8 mg/dL (2.5-4.9); Potassium, Blood 4.7 mmol/L (3.5-5.5); Total Protein, Blood 5.6 g/dL (6.4-8.2)
--- NOTE | 2021-05-06 04:52 | NUR ---
SHIFT SUMMARY: VSS, NO ACUTE CHANGES, PT REMAINES PLEASANT/COOPERATIVE, A/O X 4. PT MEDICATED FOR NAUSEA X 1, NO VOMITING. PT DENIES PAIN, HAS RECEIVED IV ABX PER NOV, IS NPO SINCE 0000, HEPARIN INFUSION OFF SINCE 0000 FOR SURGERY. PT IS VOIDING, DIARRHEA X 1.
--- NOTE | 2021-05-06 07:03 | NUR ---
PT TO OR VIA GOURNEY TELE REMOVED. SINUS TACH @ 100 PRIOR TO REMOVAL.
--- NOTE | 2021-05-06 08:05 | NUR ---
PT INTO SDS VIA GURALBARO FROM SURGICAL FLOOR. History, Chart, Medications and Allergies reviewed before start of procedure.Patient confirms NPO status and agrees with scheduled surgery. Surgical site prepped with 2% Chlorhexidine cloth wipe.
--- NOTE | 2021-05-06 09:10 | NUR ---
05/06/21 0910 Jordy Mtz PATIENT ON SCHEDULED ANTIBIOTICS. DOWNING CATH PLACED PER CD
--- NOTE | 2021-05-06 10:14 | NUR ---
REPORT FROM PACU RECIEVED REPORT FOR PT VIA PRODUCTION TEAM MANAGERZENAIDA FLORES. AWAITING PT ARRIVAL.
--- NOTE | 2021-05-06 10:57 | NUR ---
PT POSTOP PT RETURNED FROM THE OR. PT HAS BEEN HYPOTENSIVE. DENIES DIZZINESS OR LIGHTHEADEDNESS. LEFT IN SUPINE POSITION. PT IS A&O X4 AND IN A PLEASENT MOOD. FULL ASSESSMENT COMPLETED.
[2021-05-06 17:53] LABS: Hematocrit 31.1 % (33.0-51.0); Hemoglobin 10.2 g/dL (11.5-16.0)
--- NOTE | 2021-05-06 17:56 | NUR ---
SHIFT SUMMARY PT HAD SURGERY THIS AM AND HAS DONE WELL POST-OP. DISCUSSED ASYMTOMATIC HYPOTENSION W/ DR. CHILD. PT IS EATING, DRINKING, VOIDING WELL. PAIN WELL MANAGED W/ 1 NORCO. PT HAS BEEN A&0 X4. PT HAS BEEN IN PLEASENT MOOD THROUGHOUT SHIFT. PT @ BEDSIDE DURING VISITING HOURS. HEPARIN DRIP REINITIATED ORDERED. ABD HAS BEEN SOFT W/ NO SIGNS OF BRUISING SINCE ARRIVAL TO UNIT.
[2021-05-07 01:07] LABS: BASOPHILS ABSOLUTE AUTO 0.01 K/mm3 (0.00-0.23); BASOPHILS PERCENT AUTO 0 % (0-2); EOSINOPHILS PERCENT AUTO 0 % (0-6); Hematocrit 27.2 % (33.0-51.0); Hemoglobin 9.2 g/dL (11.5-16.0); IMMATURE GRAN ABSOLUTE AUTO 0.07 K/mm3 (0.00-0.10); IMMATURE GRAN PERCENT AUTO 1 % (0-1); LYMPHOCYTES ABSOLUTE AUTO 0.57 K/mm3 (0.84-5.20); LYMPHOCYTES PERCENT AUTO 6 % (21-46); MONOCYTES ABSOLUTE AUTO 0.53 K/mm3 (0.16-1.47); MONOCYTES PERCENT AUTO 5 % (4-13); Mean Corpuscular HGB 28.9 pg (26.0-34.0); Mean Corpuscular HGB Conc 33.8 g/dL (31.5-36.5); Mean Corpuscular Volume 86 fL (80-100); Mean Platelet Volume 11.1 fL (9.1-12.4); NEUTROPHILS ABSOLUTE AUTO 8.77 K/mm3 (1.96-9.15); NEUTROPHILS PERCENT AUTO 88 % (41-73); Platelet Count 141 K/mm3 (150-400); RDW Coefficient Variation 14.6 % (11.7-14.2); RDW Standard Deviation 45.3 fL (35.1-46.3); Red Blood Cell Count 3.18 M/mm3 (3.80-5.20); White Blood Cell Count 9.95 K/mm3 (4.00-11.30)
[2021-05-07 01:34] LABS: Albumin, Blood 2.3 g/dL (3.4-5.0); Albumin/Globulin Ratio 0.7 (0.8-1.8); Bilirubin, Total 0.7 mg/dL (0.1-1.0); Bun/Creatinine Ratio 18.1 (12.0-20.0); Calcium, Blood 8.2 mg/dL (8.5-10.1); Creatinine, Blood 2.6 mg/dL (0.40-1.00); Globulin, Blood 3.3 g/dL (2.2-4.0); Potassium, Blood 4.7 mmol/L (3.5-5.5); Total Protein, Blood 5.6 g/dL (6.4-8.2)
--- NOTE | 2021-05-07 05:53 | NUR ---
SHIFT SUMMARY POD1 LAP APPY, A/O X4, VSS THOUGH BP HAS BEEN LOW BUT THIS IS NORMAL FOR THE PATIENT PER HER REPORT. TELEMTRY CALLS PERIODICALLY c CHANGES IN RATE AND RHYTHM THOUGH WHEN WE CHECK ON THE PATIENT HER RATE IS 80S-90S, TELE BOX CHANGED OUT c NO CHANGES, WIRES AND STICKERS CHANGED OUT c NO CHANGES, NOC HOSPITALIST NOTIFIED ABOUT TELEMETRY CHANGES AND AN EKG WAS ORDERED WHICH LOOKS TO BE THE SAME HER LAST EKG. PT DENIES CP T/O THE SHIFT AND DENIES FEELING ANY DIFFERENT, DENIES DIZZINESS/LIGHTHEADEDNESS/CP/SOB. TOLERATING DIET, AMB c ASSISTANCE, VOIDING, 1 BM THIS SHIFT. NO OTHER ACUTE EVENTS THIS SHIFT. CALL LIGHT IN REACH, WILL CTM AND REPORT TO DAY RN.
--- NOTE | 2021-05-07 11:28 | NUR ---
PT TO CHEST X-RAY AT THIS TIME
[2021-05-07 15:00] LABS: Hematocrit 28.2 % (33.0-51.0); Hemoglobin 9.3 g/dL (11.5-16.0)
[2021-05-07 15:38] LABS: Bun/Creatinine Ratio 18.8 (12.0-20.0); Calcium, Blood 8.7 mg/dL (8.5-10.1); Creatinine, Blood 3.04 mg/dL (0.40-1.00); Potassium, Blood 4.9 mmol/L (3.5-5.5)
--- NOTE | 2021-05-07 16:09 | NUR ---
DR TALAVERA OKAY WITH STOPPING HEPARIN AND SWITCHING TO XARELTO
--- NOTE | 2021-05-07 18:25 | NUR ---
ST ELEVATION CALL FROM [facility] AT 18:[address] ELEVATION. PATIENT DENIES, CP OR PRESSURE. NO DYSPNEA. EKG MARKED ST ABNORMALITY. BP 98/65 P 93 CALL PLACED TO HOSPITALIST, AWAIT RETURN CALL
--- NOTE | 2021-05-07 19:15 | NUR ---
SHIFT SUMMARY PT IS A/O X4, IND IN ROOM. TOLERATING PO INTAKE AND VOIDING. HEP DRIP DC'D AND PT STARTED ON XARELTO TODAY. INCISIONS TO ABD WNL. ABOUT [address] ELEVATION ON TELE. EKG COMPLETED. PT DENIES CHEST PAIN/PRESSURE. PHYSICIAN NOTIFIED. EKG TO BE RECHECKED LATER THIS EVENING. PT HAS BEEN COMFORTABLE TODAY, TAKING NORCO ONCE THIS MORNING. PT RESTING IN BED AT THIS TIME.
[2021-05-08 04:47] LABS: BASOPHILS ABSOLUTE AUTO 0.02 K/mm3 (0.00-0.23); BASOPHILS PERCENT AUTO 0 % (0-2); EOSINOPHILS ABSOLUTE AUTO 0.06 K/mm3 (0.00-0.68); EOSINOPHILS PERCENT AUTO 1 % (0-6); Hematocrit 26.8 % (33.0-51.0); IMMATURE GRAN ABSOLUTE AUTO 0.05 K/mm3 (0.00-0.10); IMMATURE GRAN PERCENT AUTO 1 % (0-1); LYMPHOCYTES ABSOLUTE AUTO 1.13 K/mm3 (0.84-5.20); LYMPHOCYTES PERCENT AUTO 11 % (21-46); MONOCYTES ABSOLUTE AUTO 0.79 K/mm3 (0.16-1.47); MONOCYTES PERCENT AUTO 8 % (4-13); Mean Corpuscular HGB 28.9 pg (26.0-34.0); Mean Corpuscular HGB Conc 33.6 g/dL (31.5-36.5); Mean Corpuscular Volume 86 fL (80-100); Mean Platelet Volume 11.5 fL (9.1-12.4); NEUTROPHILS ABSOLUTE AUTO 7.88 K/mm3 (1.96-9.15); NEUTROPHILS PERCENT AUTO 79 % (41-73); Platelet Count 184 K/mm3 (150-400); RDW Coefficient Variation 14.9 % (11.7-14.2); RDW Standard Deviation 46.9 fL (35.1-46.3); Red Blood Cell Count 3.11 M/mm3 (3.80-5.20); White Blood Cell Count 9.93 K/mm3 (4.00-11.30)
[2021-05-08 05:14] LABS: Albumin, Blood 2.7 g/dL (3.4-5.0); Albumin/Globulin Ratio 0.9 (0.8-1.8); Bilirubin, Total 0.8 mg/dL (0.1-1.0); Bun/Creatinine Ratio 17.1 (12.0-20.0); Creatinine, Blood 3.5 mg/dL (0.40-1.00); Potassium, Blood 4.5 mmol/L (3.5-5.5); Total Protein, Blood 5.7 g/dL (6.4-8.2)
--- NOTE | 2021-05-08 07:09 | NUR ---
SHIFT SUMMARY POD 2 LAP APPY, A/O X4, VSS, TOLERATING DIET, EKG COMPLETED PER ORDER, NOT ACUTE CARDIAC CHANGES DURING THE SHIFT, BP REMAINS LOW BUT SHE IS HYPOTENSIVE AT BASELINE. NO ACUTE EVENTS THIS SHIFT. CALL LIGHT IN REACH, REPORT GIVEN TO DAY RN.
[2021-05-08 09:51] LABS: Troponin I 6.32 ng/mL (0.000-0.040)
--- NOTE | 2021-05-08 13:57 | NUR ---
DR TOURE RECENTLY HERE TO SEE PT
[2021-05-08 14:52] LABS: Albumin, Blood 3.3 g/dL (3.4-5.0); Anion Gap 9 mmol/L (6-16); Blood Urea Nitrogen 62 mg/dL (8-24); Bun/Creatinine Ratio 17.1 (12.0-20.0); CO2, Blood 23 mmol/L (21-32); Calcium, Blood 8.5 mg/dL (8.5-10.1); Chloride, Blood 96 mmol/L (98-108); Creatinine, Blood 3.62 mg/dL (0.40-1.00); Glomerular Filtration Rate 13 (60-); Glucose, Blood 181 mg/dL (70-99); Magnesium, Blood 2.4 mg/dL (1.6-2.4); Phosphorus, Blood 4.1 mg/dL (2.5-4.9); Potassium, Blood 4.5 mmol/L (3.5-5.5); Sodium, Blood 128 mmol/L (136-145); Uric Acid, Blood 5.8 mg/dL (2.6-6.0)
--- NOTE | 2021-05-08 15:40 | NUR ---
THIS RN NOTIFIED OF ST ELEVATION PER TELE. NOTIFIED PHYSICIAN. EKG COMPLETED AND DR TRIMBLE NOTIFIED; REPORTS HE WILL COME BY TO SEE PT.
[2021-05-08 16:18] LABS: Osmolality, Serum 292 mos/KG (275-300)
--- NOTE | 2021-05-08 16:28 | NUR ---
SHIFT SUMMARY PT HAS BEEN A/O X4, IND IN ROOM. TOLERATING DIET AND VOIDING. DR TOURE CONSULTED TODAY. LABS AND RENAL ULTRASOUND ORDERD AND COMPLETED. BLADDER SCAN COMPLETED PER ORDER WITH 191ML. DR TRIMBLE IN TO SEE PT TODAY TWICE. PT HAD ST ELEVATION AGAIN THIS AFTERNOON; EKG COMPLETED; DR TRIMBLE REVIEWED AND STATES NO CHANGES FROM PREVIOUS. TROPONINS ORDERED Q6 X24HRS. PT DENIES CHEST PAIN/PRESSURE. [facility] PHYSICIAN IN TO SEE PT TODAY. HEPARIN DRIP RE-STARTED AND XARELTO DC'D.
[2021-05-09 02:06] LABS: BASOPHILS ABSOLUTE AUTO 0.02 K/mm3 (0.00-0.23); BASOPHILS PERCENT AUTO 0 % (0-2); EOSINOPHILS ABSOLUTE AUTO 0.02 K/mm3 (0.00-0.68); EOSINOPHILS PERCENT AUTO 0 % (0-6); Hematocrit 28.4 % (33.0-51.0); Hemoglobin 9.8 g/dL (11.5-16.0); Mean Corpuscular HGB 29.2 pg (26.0-34.0); Mean Corpuscular HGB Conc 34.5 g/dL (31.5-36.5); Mean Corpuscular Volume 85 fL (80-100); Mean Platelet Volume 11.7 fL (9.1-12.4); Platelet Count 200 K/mm3 (150-400); RDW Coefficient Variation 14.7 % (11.7-14.2); RDW Standard Deviation 45.8 fL (35.1-46.3); Red Blood Cell Count 3.36 M/mm3 (3.80-5.20); White Blood Cell Count 10.44 K/mm3 (4.00-11.30)
[2021-05-09 02:07] LABS: IMMATURE GRAN ABSOLUTE AUTO 0.04 K/mm3 (0.00-0.10); IMMATURE GRAN PERCENT AUTO 0 % (0-1); LYMPHOCYTES ABSOLUTE AUTO 1.34 K/mm3 (0.84-5.20); LYMPHOCYTES PERCENT AUTO 13 % (21-46); MONOCYTES ABSOLUTE AUTO 0.75 K/mm3 (0.16-1.47); MONOCYTES PERCENT AUTO 7 % (4-13); NEUTROPHILS ABSOLUTE AUTO 8.27 K/mm3 (1.96-9.15); NEUTROPHILS PERCENT AUTO 79 % (41-73)
[2021-05-09 02:23] LABS: Albumin, Blood 3.1 g/dL (3.4-5.0); Bilirubin, Total 0.8 mg/dL (0.1-1.0); Bun/Creatinine Ratio 17.5 (12.0-20.0); Calcium, Blood 8.1 mg/dL (8.5-10.1); Creatinine, Blood 3.72 mg/dL (0.40-1.00); Magnesium, Blood 2.3 mg/dL (1.6-2.4); Phosphorus, Blood 4.5 mg/dL (2.5-4.9); Potassium, Blood 4.9 mmol/L (3.5-5.5); Total Protein, Blood 6.1 g/dL (6.4-8.2)
--- NOTE | 2021-05-09 04:04 | NUR ---
SHIFT SUMMARY PT HAS BEEN NAUSEATED. X1 EMESIS AT THE BEGINNING OF SHIFT. PT CONT TO REPORT FLATUS, BUT STATES HER ABD FEELS "MORE BLOATED". SLOWLY AUSTEN SIPS OF WATER. INDEP TO RESTROOM. STRICT I/Os. IVF + HEP GTT INFUSING PER ORDERS. PT DENIES NEED FOR PAIN MEDICATIONS. TROPONINS CONTINUTE TO TREND DOWN. PT DENIES C/P OR PRESSURE. USES CALL LIGHT APPROPRIATELY.
[2021-05-09 08:18] LABS: Albumin, Blood 3.1 g/dL (3.4-5.0); Bilirubin, Direct 0.3 mg/dL (0.0-0.3); Bilirubin, Indirect 0.4 mg/dL (0.1-0.7); Bilirubin, Total 0.7 mg/dL (0.1-1.0); Globulin, Blood 3.2 g/dL (2.2-4.0); Total Protein, Blood 6.3 g/dL (6.4-8.2)
--- NOTE | 2021-05-09 18:38 | NUR ---
SHIFT SUMMARY PT POD #3 FOR LAP APPY. 3 LAP SITES WITH WOUND GLUE CDI. PT PASSING GAS AND HAS 2 BM'S THIS SHIFT. EXPERIENCED NAUSEA THIS AM BUT IT HAS SINCE RESOLVED. PT REPORTS "FEELING MUCH BETTER" TODAY. TROPONIN LEVELS ARE TRENDING DOWN BUT STILL REMAIN CRITICALLY HIGH. PT ASYMPTOMATIC. VSS. WILL REPORT TO SUSIE ESTEVEZ.
[2021-05-10 02:17] LABS: Hematocrit 27.9 % (33.0-51.0); Hemoglobin 9.6 g/dL (11.5-16.0)
[2021-05-10 02:32] LABS: Albumin, Blood 2.7 g/dL (3.4-5.0); Anion Gap 10 mmol/L (6-16); Blood Urea Nitrogen 70 mg/dL (8-24); Bun/Creatinine Ratio 19.8 (12.0-20.0); CO2, Blood 22 mmol/L (21-32); Calcium, Blood 7.9 mg/dL (8.5-10.1); Chloride, Blood 98 mmol/L (98-108); Creatinine, Blood 3.53 mg/dL (0.40-1.00); Glomerular Filtration Rate 13 (60-); Glucose, Blood 100 mg/dL (70-99); Magnesium, Blood 2.1 mg/dL (1.6-2.4); Phosphorus, Blood 4.7 mg/dL (2.5-4.9); Potassium, Blood 4.5 mmol/L (3.5-5.5); Sodium, Blood 130 mmol/L (136-145)
--- NOTE | 2021-05-10 04:48 | NUR ---
SHIFT SUMMARY NO ACUTE CHANGES THIS SHIFT. PT HAS RESTED WELL. 1 NORCO GIVEN FOR PAIN. PT CONT TO REPORT FLATUS. REPORTS SHE FEELS BETTER THAN PREVIOUS SHIFT. INDEP TO BRP. STRICT I/OS. IVF + HEPARIN GTT INFUSING PER ORDERS. USES CALL LIGHT APPROPRIATELY.
--- NOTE | 2021-05-10 13:05 | NUR ---
DR DA SILVA IN TO SEE PT.
--- NOTE | 2021-05-10 13:40 | NUR ---
back from imaging.
--- NOTE | 2021-05-10 17:21 | NUR ---
SUMMARY PT HAS REPORTED "GAS PAIN" TO ABD. ABD SLIGHTLY FIRM AND DISTENDED. BTX4. ABDOMINAL XR PERFORMED THIS SHIFT. ENCOURAGED PT TO AMBULATE. PT TAKING SHOWER AT THIS TIME. HEPARIN DRIP DC'D THIS SHIFT; PLAN TO RESTART XARELTO THIS EVENING. PT INDEPENDENT IN ROOM.
--- NOTE | 2021-05-10 17:46 | NUR ---
PT PAINFUL MEDICATED PER ORDERS FOR PAIN. DISCOURAGED PT FROM EATING SOLIDS, ENCOURAGED PT TO SIP FLUIDS PER DISCUSSION W/DR RODAS REGARDING ABD XR. DISCUSSED W/DR DA SILVA, ADVISED IF PT BECOMES TACHY OR UNCONTROLLABLE PAIN, REPORT TO SURGEON. PT SITTING UP IN CHAIR AT THIS TIME. ENCOURAGED AMBULATION.
[2021-05-11 04:29] LABS: BASOPHILS ABSOLUTE AUTO 0.01 K/mm3 (0.00-0.23); BASOPHILS PERCENT AUTO 0 % (0-2); EOSINOPHILS ABSOLUTE AUTO 0.09 K/mm3 (0.00-0.68); EOSINOPHILS PERCENT AUTO 1 % (0-6); Hematocrit 28.8 % (33.0-51.0); Hemoglobin 9.9 g/dL (11.5-16.0); IMMATURE GRAN ABSOLUTE AUTO 0.04 K/mm3 (0.00-0.10); IMMATURE GRAN PERCENT AUTO 1 % (0-1); LYMPHOCYTES ABSOLUTE AUTO 1.19 K/mm3 (0.84-5.20); LYMPHOCYTES PERCENT AUTO 15 % (21-46); MONOCYTES ABSOLUTE AUTO 0.96 K/mm3 (0.16-1.47); MONOCYTES PERCENT AUTO 12 % (4-13); Mean Corpuscular HGB 29.6 pg (26.0-34.0); Mean Corpuscular HGB Conc 34.4 g/dL (31.5-36.5); Mean Corpuscular Volume 86 fL (80-100); Mean Platelet Volume 11.2 fL (9.1-12.4); NEUTROPHILS PERCENT AUTO 72 % (41-73); Platelet Count 240 K/mm3 (150-400); RDW Coefficient Variation 15.4 % (11.7-14.2); RDW Standard Deviation 47.8 fL (35.1-46.3); Red Blood Cell Count 3.34 M/mm3 (3.80-5.20); White Blood Cell Count 8.09 K/mm3 (4.00-11.30)
[2021-05-11 04:48] LABS: Albumin, Blood 2.6 g/dL (3.4-5.0); Anion Gap 11 mmol/L (6-16); Blood Urea Nitrogen 67 mg/dL (8-24); Bun/Creatinine Ratio 22.6 (12.0-20.0); CO2, Blood 20 mmol/L (21-32); Calcium, Blood 8.7 mg/dL (8.5-10.1); Chloride, Blood 99 mmol/L (98-108); Creatinine, Blood 2.96 mg/dL (0.40-1.00); Glomerular Filtration Rate 16 (60-); Glucose, Blood 146 mg/dL (70-99); Magnesium, Blood 2.2 mg/dL (1.6-2.4); Phosphorus, Blood 4.7 mg/dL (2.5-4.9); Potassium, Blood 4.7 mmol/L (3.5-5.5); Sodium, Blood 130 mmol/L (136-145)
--- NOTE | 2021-05-11 07:49 | NUR ---
SUMMARY PT PASSED FLATUS X1 THIS AM.NO C/O NAUSEA .COUGHED TONIGHT AND VOICE BECAME HOARSE.I WILL REPORT TO DAY RN.
--- NOTE | 2021-05-11 16:48 | NUR ---
URINARY OUTPUT PT ONLY HAD 250 OUT FOR SHIFT. BS SHOWED 63 ML. DISCUSSED W/DR DA SILVA. ORDERS TO RESTART FLUIDS AT 50 ML/HR. HAD SALINE LOCKED YESTERDAY PER DR RODAS VERBAL ORDER, RN PLACED ORDER UNDER NURSE NOTIFY.
--- NOTE | 2021-05-11 18:52 | NUR ---
SUMMARY PT HAD POOR UO THIS SHIFT. ORDERS OBTAINED FOR FLUIDS. PT PASSED FLATUS THIS AM AND HAD VERY SMALL BM THIS AM. AMBULATES INDEPENDENTLY IN HALLS. USES CALL LIGHT APPROPRIATELY.
[2021-05-12 04:16] LABS: Hematocrit 27.3 % (33.0-51.0); Hemoglobin 9.3 g/dL (11.5-16.0)
[2021-05-12 04:37] LABS: Albumin, Blood 2.6 g/dL (3.4-5.0); Anion Gap 10 mmol/L (6-16); Blood Urea Nitrogen 61 mg/dL (8-24); Bun/Creatinine Ratio 23.1 (12.0-20.0); CO2, Blood 21 mmol/L (21-32); Chloride, Blood 99 mmol/L (98-108); Creatinine, Blood 2.64 mg/dL (0.40-1.00); Glomerular Filtration Rate 18 (60-); Glucose, Blood 58 mg/dL (70-99); Magnesium, Blood 2.4 mg/dL (1.6-2.4); Phosphorus, Blood 4.3 mg/dL (2.5-4.9); Potassium, Blood 4.7 mmol/L (3.5-5.5); Sodium, Blood 130 mmol/L (136-145)
--- NOTE | 2021-05-12 06:51 | NUR ---
SUMMARY DR TOURE ROUNDING THIS AM.CONFIRMED HE WISHES TO KEEP PTS IV AT 50 ML/HR.PT LARGELY DISTENDED. PASSING SOME FLATUS.
[2021-05-12 09:53] LABS: BASOPHILS ABSOLUTE AUTO 0.01 K/mm3 (0.00-0.23); BASOPHILS PERCENT AUTO 0 % (0-2); EOSINOPHILS ABSOLUTE AUTO 0.02 K/mm3 (0.00-0.68); EOSINOPHILS PERCENT AUTO 0 % (0-6); Hematocrit 27.8 % (33.0-51.0); Hemoglobin 9.4 g/dL (11.5-16.0); IMMATURE GRAN ABSOLUTE AUTO 0.03 K/mm3 (0.00-0.10); IMMATURE GRAN PERCENT AUTO 0 % (0-1); LYMPHOCYTES ABSOLUTE AUTO 1.04 K/mm3 (0.84-5.20); LYMPHOCYTES PERCENT AUTO 13 % (21-46); MONOCYTES ABSOLUTE AUTO 0.81 K/mm3 (0.16-1.47); MONOCYTES PERCENT AUTO 10 % (4-13); Mean Corpuscular HGB Conc 33.8 g/dL (31.5-36.5); Mean Corpuscular Volume 86 fL (80-100); Mean Platelet Volume 11.3 fL (9.1-12.4); NEUTROPHILS ABSOLUTE AUTO 6.41 K/mm3 (1.96-9.15); NEUTROPHILS PERCENT AUTO 77 % (41-73); Platelet Count 318 K/mm3 (150-400); RDW Coefficient Variation 15.9 % (11.7-14.2); Red Blood Cell Count 3.24 M/mm3 (3.80-5.20); White Blood Cell Count 8.32 K/mm3 (4.00-11.30)
--- NOTE | 2021-05-12 10:50 | NUR ---
DR TALAVERA AND DR CANNON HAVE BEEN IN TO SEE PT THIS MORNING. ORDERS GIVEN FOR SIMETHICONE AND SUPPOSITORY WHICH HAVE BEEN ADMINISTERED. PT WENT TO ABD XRAY THIS MORNING. PT C/O PAIN BUT DECLINED NORCO. CBG WAS 44 THIS MORNING; GIVEN JUICE WITH RE-CHECK OF 51. AFTER SOME BREAKFAST CBG WAS 73. PT REQUESTED TO WAIT ON LANTUS AT THAT TIME; WILL RE-CHECK AND EVALUATE BEFORE LUNCH. PROVIDER AWARE.
--- NOTE | 2021-05-12 15:04 | NUR ---
PT HAD EPISODE OF EMESIS; MEDICATED WITH ZOFRAN PER ORDER. PT DENIES BM TODAY, HOWEVER SHE DOES REPORT PASSING FLATUS. HAS NOT HAD MUCH OF AN APPETITE TODAY.
--- NOTE | 2021-05-12 16:26 | NUR ---
NG TUBE PLACED WITH 300ML OUT WITHIN THE FIRST 20 MIN. PLACED AT 1600. PT TOLERATED WELL.
--- NOTE | 2021-05-12 16:56 | NUR ---
Update 05/06/21: Per chart review of Dr. Pickett's notes, pt. complaining of abdominal pain after attempting consume a full liquid breakfast. CLD ordered with a slow transition to FLD. No anticipated discharge date at this time. Pt. was scheduled for a hospital F/U appt. this week, anticipating that she would improve enough to discharge prior to today. Will cancel that appt. and wait until appropriate to reschedule.
--- NOTE | 2021-05-12 18:08 | NUR ---
SHIFT SUMMARY PT HAS BEEN A/O X4, IND IN ROOM. PT WAS PUT ON CLEAR LIQUIDS TODAY, BUT CONTINUED TO HAVE ABD DISTENTION, FLATUS BUT NO BM, AND HAD AN EPISODE OF EMESIS. NGT PLACED AROUND 1600 WITH TOTAL OF 800ML OUT BY 1800. PT HAD BM AROUND 1730. PT HAD ABD XRAY AND CT TODAY WELL. SHE REPORTS PAIN BUT IS HESITANT TO TAKE NARCOTICS; MEDICATED WITH TYLENOL PRN. PT HAS HAD LOW PO INTAKE AND LOW URINE OUTPUT TODAY. PT RESTING IN BED AT THIS TIME. NG TO LIS.
--- NOTE | 2021-05-13 03:57 | NUR ---
SHIFT SUMMARY: PT POD#7 FOR A LAP APPY. LAP SITES C/D/I WITH WOUND GLUE. NGT IN PLACE CONNECTED TO LIS. DRAINING A MODERATE AMOUNT OF GREENISH/BROWN FLUID. BT HYPOACTIVE T/O. ABD DISTENDED. PT REPORTS PASSING A SMALL AMOUNT OF FLATUS. PT HAD A LARGE INCONTINENT UNFORMED BM THIS SHIFT. PT C/O NAUSEA ONCE THIS SHIFT. NO EMESIS. MEDICATED WITH ZOFRAN PER EMAR. DENIES ABD PAIN. PT STARTED ON SQ HEPARIN AT 0000 PER ORDERS. FLUIDS INFUSING AT 50CC/HR.
[2021-05-13 05:07] LABS: Hematocrit 26.5 % (33.0-51.0); Hemoglobin 8.9 g/dL (11.5-16.0)
[2021-05-13 05:45] LABS: Albumin, Blood 2.5 g/dL (3.4-5.0); Anion Gap 14 mmol/L (6-16); Blood Urea Nitrogen 66 mg/dL (8-24); Bun/Creatinine Ratio 23.6 (12.0-20.0); CO2, Blood 18 mmol/L (21-32); Calcium, Blood 7.8 mg/dL (8.5-10.1); Chloride, Blood 97 mmol/L (98-108); Glomerular Filtration Rate 17 (60-); Glucose, Blood 246 mg/dL (70-99); Magnesium, Blood 2.3 mg/dL (1.6-2.4); Phosphorus, Blood 5.7 mg/dL (2.5-4.9); Sodium, Blood 129 mmol/L (136-145)
[2021-05-13 17:03] LABS: BASOPHILS PERCENT AUTO 0 % (0-2); EOSINOPHILS PERCENT AUTO 0 % (0-6); Hematocrit 26.7 % (33.0-51.0); IMMATURE GRAN ABSOLUTE AUTO 0.03 K/mm3 (0.00-0.10); IMMATURE GRAN PERCENT AUTO 0 % (0-1); LYMPHOCYTES ABSOLUTE AUTO 0.66 K/mm3 (0.84-5.20); LYMPHOCYTES PERCENT AUTO 10 % (21-46); MONOCYTES ABSOLUTE AUTO 0.52 K/mm3 (0.16-1.47); MONOCYTES PERCENT AUTO 8 % (4-13); Mean Corpuscular HGB 29.3 pg (26.0-34.0); Mean Corpuscular HGB Conc 33.7 g/dL (31.5-36.5); Mean Corpuscular Volume 87 fL (80-100); Mean Platelet Volume 10.7 fL (9.1-12.4); NEUTROPHILS ABSOLUTE AUTO 5.65 K/mm3 (1.96-9.15); NEUTROPHILS PERCENT AUTO 82 % (41-73); Platelet Count 279 K/mm3 (150-400); RDW Coefficient Variation 16.6 % (11.7-14.2); RDW Standard Deviation 48.8 fL (35.1-46.3); Red Blood Cell Count 3.07 M/mm3 (3.80-5.20); White Blood Cell Count 6.86 K/mm3 (4.00-11.30)
--- NOTE | 2021-05-13 17:09 | NUR ---
bladder scan of 174 at this time
--- NOTE | 2021-05-13 17:18 | NUR ---
SHIFT SUMMARY PT HAS BEEN A/O X4, IND IN ROOM. NGT IN PLACE TO LIS TODAY WITH BROWN/GREEN DRAINAGE. PT HAD A BM THIS MORNING. SHE HAS CONTINUED TO HAVE NAUSEA T/O THE DAY. NGT HAS BEEN FLUSHED AND IS DRAINING W/O DIFFICULTY. BT HYPOACTIVE T/O AND ABD REMAINS DISTENDED. PT DOES REPORT SOME IMPROVEMENT IN ABD DISCOMFORT AND PRESSURE COMPARED TO YESTERDAY. POWER GLIDE WAS STARTED TODAY. PT IS NOW ON CLINIMIX AND SODIUM BICARB. PT RESTING IN BED AT THIS TIME.
[2021-05-13 19:16] LABS: C DIFFICILE DNA NEGATIVE (Negative)
[2021-05-13 19:37] LABS: Albumin, Blood 2.5 g/dL (3.4-5.0); Albumin/Globulin Ratio 0.9 (0.8-1.8); Bilirubin, Total 0.8 mg/dL (0.1-1.0); Bun/Creatinine Ratio 23.1 (12.0-20.0); Calcium, Blood 8.2 mg/dL (8.5-10.1); Creatinine, Blood 3.07 mg/dL (0.40-1.00); Globulin, Blood 2.9 g/dL (2.2-4.0); Potassium, Blood 5.2 mmol/L (3.5-5.5); Total Protein, Blood 5.4 g/dL (6.4-8.2)
[2021-05-14 04:46] LABS: BASOPHILS ABSOLUTE AUTO 0.01 K/mm3 (0.00-0.23); BASOPHILS PERCENT AUTO 0 % (0-2); EOSINOPHILS ABSOLUTE AUTO 0.01 K/mm3 (0.00-0.68); EOSINOPHILS PERCENT AUTO 0 % (0-6); Hematocrit 26.9 % (33.0-51.0); Hemoglobin 9.1 g/dL (11.5-16.0); IMMATURE GRAN ABSOLUTE AUTO 0.04 K/mm3 (0.00-0.10); IMMATURE GRAN PERCENT AUTO 1 % (0-1); LYMPHOCYTES ABSOLUTE AUTO 0.95 K/mm3 (0.84-5.20); LYMPHOCYTES PERCENT AUTO 11 % (21-46); MONOCYTES ABSOLUTE AUTO 0.76 K/mm3 (0.16-1.47); MONOCYTES PERCENT AUTO 9 % (4-13); Mean Corpuscular HGB 29.5 pg (26.0-34.0); Mean Corpuscular HGB Conc 33.8 g/dL (31.5-36.5); Mean Corpuscular Volume 87 fL (80-100); Mean Platelet Volume 10.6 fL (9.1-12.4); NEUTROPHILS ABSOLUTE AUTO 6.96 K/mm3 (1.96-9.15); NEUTROPHILS PERCENT AUTO 80 % (41-73); Platelet Count 277 K/mm3 (150-400); RDW Coefficient Variation 16.6 % (11.7-14.2); RDW Standard Deviation 49.1 fL (35.1-46.3); Red Blood Cell Count 3.08 M/mm3 (3.80-5.20); White Blood Cell Count 8.73 K/mm3 (4.00-11.30)
[2021-05-14 05:02] LABS: Albumin, Blood 2.4 g/dL (3.4-5.0); Anion Gap 8 mmol/L (6-16); Blood Urea Nitrogen 75 mg/dL (8-24); CO2, Blood 25 mmol/L (21-32); Calcium, Blood 7.6 mg/dL (8.5-10.1); Chloride, Blood 98 mmol/L (98-108); Creatinine, Blood 2.89 mg/dL (0.40-1.00); Glomerular Filtration Rate 16 (60-); Glucose, Blood 256 mg/dL (70-99); Phosphorus, Blood 4.8 mg/dL (2.5-4.9); Potassium, Blood 4.6 mmol/L (3.5-5.5); Sodium, Blood 131 mmol/L (136-145)
--- NOTE | 2021-05-14 05:47 | NUR ---
PT APPEARED TO SLEEP FOR MAJORITY OF NIGHT. PT REP FEELING WEAK AND "WORN OUT" PT DENIED PAIN/N/V. BT HYPO, NO CHANGES IN ABD DISTENTION. NGT TO [facility] [employer]/HILARY FAROOQ. HAD 1 VOID OF 250 ML URINE, NO BM THIS SHIFT. PT NEEDING ENCOURAGING TO GET OOB. CLINIMIX AND SODIUM BICARB CONT PER ORDERS.
--- NOTE | 2021-05-14 11:41 | NUR ---
Update 05/14/21: Pt. not yet appropriate for discharge per chart review with Dr. Pickett. Discharge planning is already complete. Plan to schedule hospital F/U appointment once D/C date/time is set and follow-up with patient to ensure she does not have any additional needs. Update 05/13/21: NG tube placed. Per chart review with Dr. Pickett, pt. not yet appropriate for discharge. Discharge planning was already completed last week. Pt. will just need an updated hospital F/U appt. time/date when appropriate.
--- NOTE | 2021-05-14 18:09 | NUR ---
SHIFT SUMMARY PATIENT EXHAUSTED AND SLEPT MOST OF SHIFT. NG TUBE PATENT AND DRAINING. 200 ML NG OUTPUT THIS SHIFT. PATIENT REPORTS ABD DISCOMFORT BETTER THIS SHIFT, PASSING FLATUS, LESS DISTENTION. REMAINS NPO AT THIS TIME. ALERT, ORIENTED, AND PLEASANT.
[2021-05-15 05:46] LABS: BASOPHILS ABSOLUTE AUTO 0.01 K/mm3 (0.00-0.23); BASOPHILS PERCENT AUTO 0 % (0-2); EOSINOPHILS ABSOLUTE AUTO 0.03 K/mm3 (0.00-0.68); EOSINOPHILS PERCENT AUTO 0 % (0-6); Hematocrit 28.6 % (33.0-51.0); Hemoglobin 9.5 g/dL (11.5-16.0); IMMATURE GRAN ABSOLUTE AUTO 0.07 K/mm3 (0.00-0.10); IMMATURE GRAN PERCENT AUTO 1 % (0-1); LYMPHOCYTES ABSOLUTE AUTO 1.01 K/mm3 (0.84-5.20); LYMPHOCYTES PERCENT AUTO 9 % (21-46); MONOCYTES PERCENT AUTO 6 % (4-13); Mean Corpuscular HGB 29.1 pg (26.0-34.0); Mean Corpuscular HGB Conc 33.2 g/dL (31.5-36.5); Mean Corpuscular Volume 88 fL (80-100); NEUTROPHILS ABSOLUTE AUTO 9.96 K/mm3 (1.96-9.15); NEUTROPHILS PERCENT AUTO 85 % (41-73); Platelet Count 299 K/mm3 (150-400); RDW Standard Deviation 51.1 fL (35.1-46.3); Red Blood Cell Count 3.26 M/mm3 (3.80-5.20); White Blood Cell Count 11.78 K/mm3 (4.00-11.30)
[2021-05-15 06:23] LABS: Albumin, Blood 2.3 g/dL (3.4-5.0); Albumin/Globulin Ratio 0.8 (0.8-1.8); Bilirubin, Total 0.5 mg/dL (0.1-1.0); Bun/Creatinine Ratio 30.7 (12.0-20.0); Calcium, Blood 7.7 mg/dL (8.5-10.1); Creatinine, Blood 2.28 mg/dL (0.40-1.00); Globulin, Blood 2.9 g/dL (2.2-4.0); Magnesium, Blood 2.8 mg/dL (1.6-2.4); Phosphorus, Blood 3.7 mg/dL (2.5-4.9); Potassium, Blood 4.3 mmol/L (3.5-5.5); Total Protein, Blood 5.2 g/dL (6.4-8.2)
--- NOTE | 2021-05-15 09:53 | NUR ---
NGT CLAMPED AT THIS TIME PER DR. TORRES. ALSO ABLE TO GIVE SOME MEDS PO. PT ONLY TOLERATED 2, REPORTS DIFFICULT TO SWALLOW, SEE EMAR. WILL CTM
[2021-05-16 05:01] LABS: Hematocrit 27.1 % (33.0-51.0); Hemoglobin 8.7 g/dL (11.5-16.0)
[2021-05-16 05:40] LABS: Albumin, Blood 2.3 g/dL (3.4-5.0); Anion Gap 5 mmol/L (6-16); Blood Urea Nitrogen 69 mg/dL (8-24); Bun/Creatinine Ratio 37.1 (12.0-20.0); CO2, Blood 31 mmol/L (21-32); Calcium, Blood 8.1 mg/dL (8.5-10.1); Chloride, Blood 100 mmol/L (98-108); Creatinine, Blood 1.86 mg/dL (0.40-1.00); Glomerular Filtration Rate 27 (60-); Glucose, Blood 175 mg/dL (70-99); Magnesium, Blood 2.8 mg/dL (1.6-2.4); Phosphorus, Blood 3.7 mg/dL (2.5-4.9); Potassium, Blood 4.5 mmol/L (3.5-5.5); Sodium, Blood 136 mmol/L (136-145)
--- NOTE | 2021-05-16 07:13 | NUR ---
SHIFT SUMMARY POD 10 LAP APPY, A/O X4, VSS THOUGH PT IS HYPOTENSIVE WHICH IS NORMAL PER HER BASELINE. NG TUBE REMOVED BY SURGEON, PT TOLERATING CLEARS PRIOR TO NG REMVAL WHEN IT WAS CLAMPED. PT CONTINUED TO DRINK WATER TONIGHT WITHOUT ANY C/O NAUSEA OR ABD PAIN, PT APPEARS TO BE IN IMPROVED MOOD LOOKING FORWARD TO BEING ABLE TO EAT TODAY. NO ACUTE EVENTS THIS SHIFT. CALL LIGHT IN REACH, REPORT GIVEN TO DAY RN.
--- NOTE | 2021-05-16 12:50 | NUR ---
PT TOLERATED REG DIET WELL FOR LUNCH, ATE ABOUT 50% WITHOUT PAIN OR NAUSEA. DR. CANNON NOTIFIED, WILL AWAIT DC ORDERS
--- NOTE | 2021-05-16 15:29 | NUR ---
DISCHARGE: PACKET PRINTED AND PT EDUCATED. NO SCRIPTS NEEDED. PT LEFT WITH BELONGINGS VIA WHEELCHAIR WITH MARY LOPEZ AT ABOUT 1520
== END 2021-05-16 15:20 | disposition home or self-care (01) | DRG 338 ==
LOC: ER 18:54 → SURS 23:51 → ER 05-04 00:44 → SURS 05-04 01:02
PROVIDERS: Family Medicine; Hospitalist; Internal Medicine Nephrology; Pharmacist; Physician Assistant; Student in an Organized Health Care Education/Training Program; Surgery; ADMIT Internal Medicine
PROC: 0DTJ4ZZ Resection of Appendix, Percutaneous Endoscopic Approach (ICD-10-PCS; principal; 2021-05-06 07:30)
DX: K35.32 Acute appendicitis with perforation, localized peritonitis, and gangrene, without abscess (principal); I21.4 Non-ST elevation (NSTEMI) myocardial infarction; I50.23 Acute on chronic systolic (congestive) heart failure; I13.0 Hypertensive heart and chronic kidney disease with heart failure and stage 1 through stage 4 chronic kidney disease, or unspecified chronic kidney disease; N17.9 Acute kidney failure, unspecified; E87.1 Hypo-osmolality and hyponatremia; K56.7 Ileus, unspecified; E87.2 Acidosis; Z20.822 Contact with and (suspected) exposure to COVID-19; I25.5 Ischemic cardiomyopathy; I51.3 Intracardiac thrombosis, not elsewhere classified; E03.9 Hypothyroidism, unspecified; I27.20 Pulmonary hypertension, unspecified; I34.0 Nonrheumatic mitral (valve) insufficiency; E78.5 Hyperlipidemia, unspecified; E10.22 Type 1 diabetes mellitus with diabetic chronic kidney disease; I25.10 Atherosclerotic heart disease of native coronary artery without angina pectoris; N18.30 Chronic kidney disease, stage 3 unspecified; D63.1 Anemia in chronic kidney disease; H91.90 Unspecified hearing loss, unspecified ear; I95.9 Hypotension, unspecified; E88.09 Other disorders of plasma-protein metabolism, not elsewhere classified; E86.9 Volume depletion, unspecified; R19.7 Diarrhea, unspecified; Z87.891 Personal history of nicotine dependence; I25.2 Old myocardial infarction; Z90.710 Acquired absence of both cervix and uterus; Z95.5 Presence of coronary angioplasty implant and graft; Z98.890 Other specified postprocedural states; Z79.4 Long term (current) use of insulin; Z79.899 Other long term (current) drug therapy; Z79.82 Long term (current) use of aspirin; Z79.01 Long term (current) use of anticoagulants
CPT/HCPCS: 36415; 71046; 74018; 74019; 74176; 74177; 76705; 76770; 80048; 80053; 80069; 80076; 81001; 82150; 82436; 82533; 82550; 82947; 83605; 83690; 83735; 83880; 83930; 84100; 84145; 84300; 84443; 84484; 84550; 85014; 85018; 85025; 85610; 85730; 87086; 87493; 88304; 93005; 93010; 96361; 96365; 96375; 99285-25; A9270; C1894; C8929; J0881; J1100; J1170; J1200; J1644; J1815; J1940; J2370; J2405; J2543; J2704; J2765; J3010; J7030; J7042; J7050; J7070; J7131; P9046; Q9957; Q9967; U0004

== ENCOUNTER 2021-05-18 03:19 | Inpatient (IN) | payer OTHER ==
[~2021-05-18] VITALS: Ht 165.1 cm; Wt 79.4 kg
[2021-05-18 03:46] LABS: BASOPHILS ABSOLUTE AUTO 0.02 K/mm3 (0.00-0.23); BASOPHILS PERCENT AUTO 0 % (0-2); EOSINOPHILS ABSOLUTE AUTO 0.01 K/mm3 (0.00-0.68); EOSINOPHILS PERCENT AUTO 0 % (0-6); Hematocrit 31.3 % (33.0-51.0); IMMATURE GRAN ABSOLUTE AUTO 0.08 K/mm3 (0.00-0.10); IMMATURE GRAN PERCENT AUTO 1 % (0-1); LYMPHOCYTES ABSOLUTE AUTO 1.47 K/mm3 (0.84-5.20); LYMPHOCYTES PERCENT AUTO 15 % (21-46); MONOCYTES ABSOLUTE AUTO 0.74 K/mm3 (0.16-1.47); MONOCYTES PERCENT AUTO 8 % (4-13); Mean Corpuscular HGB 29.4 pg (26.0-34.0); Mean Corpuscular HGB Conc 31.9 g/dL (31.5-36.5); Mean Corpuscular Volume 92 fL (80-100); Mean Platelet Volume 11.4 fL (9.1-12.4); NEUTROPHILS ABSOLUTE AUTO 7.38 K/mm3 (1.96-9.15); NEUTROPHILS PERCENT AUTO 76 % (41-73); NRBC ABSOLUTE 0.02 K/mm3 (0.00-0.02); NRBC Auto 0.2 /100 WBC (0.0-0.2); Platelet Count 325 K/mm3 (150-400); RDW Coefficient Variation 17.4 % (11.7-14.2); RDW Standard Deviation 57.1 fL (35.1-46.3)
[2021-05-18 03:50] LABS: Calcium, Ionized (POC) 0.94 mmol/L (1.10-1.46); Chloride (POC) 95 mmol/L (98-108); Creatinine (POC) 3.6 mg/dL (0.6-1.0); Glucose (ISTAT POC) 190 mg/dL (70-99); Hemoglobin (POC) 9.9 g/dL (12.0-16.0); Potassium (POC) 6.3 mmol/L (3.5-5.5); Sodium (POC) 129 mmol/L (135-148); Total CO2 (POC) 20 mmol/L (21-32)
[2021-05-18 04:22] LABS: Alanine Aminotransfer (ALT/SGP 2040 U/L (12-78); Albumin, Blood 2.4 g/dL (3.4-5.0); Albumin/Globulin Ratio 0.9 (0.8-1.8); Alk Phos 697 U/L (50-136); Anion Gap 11 mmol/L (6-16); Aspartate Aminotrans (AST/SGOT 3207 U/L (12-37); Bilirubin, Total 1.8 mg/dL (0.1-1.0); Blood Urea Nitrogen 86 mg/dL (8-24); Bun/Creatinine Ratio 26.6 (12.0-20.0); CO2, Blood 22 mmol/L (21-32); Calcium, Blood 7.3 mg/dL (8.5-10.1); Chloride, Blood 98 mmol/L (98-108); Creatinine, Blood 3.23 mg/dL (0.40-1.00); Globulin, Blood 2.8 g/dL (2.2-4.0); Glomerular Filtration Rate 14 (60-); Glucose, Blood 190 mg/dL (70-99); Potassium, Blood 6.4 mmol/L (3.5-5.5); Sodium, Blood 131 mmol/L (136-145); Total Protein, Blood 5.2 g/dL (6.4-8.2)
[2021-05-18 05:01] LABS: Source, Urine Catheter
[2021-05-18 05:03] LABS: Blood, Urine 3+ (Neg); Glucose Qualitative, Urine 3+ (Neg); Ketones, Urine 1+ (Neg); Leukocyte Esterase, Urine 1+ (Neg); Nitrite, Urine Neg (Neg); Protein, Urine 4+ (Neg); Urobilinogen, Urine 2+ (Normal)
[2021-05-18 05:21] LABS: Appearance, Urine Hazy (Clear); Bilirubin, Urine 2+ (Neg); Color, Urine Amber (P-Yellow)
[2021-05-18 05:29] LABS: Amorphous Mod (0-Heavy); Bacteria Mod /hpf; Hyaline Casts TNTC /lpf (0-2); Mucus Light (0-Heavy); Squamous Epithelial Cells Mod /hpf (Few)
[2021-05-18 05:40] LABS: PCO2 Arterial 42.3 mmHg (35-45); pH Blood Arterial 7.24 (7.35-7.45)
[2021-05-18 05:42] LABS: BASOPHILS ABSOLUTE AUTO 0.05 K/mm3 (0.00-0.23); BASOPHILS PERCENT AUTO 0 % (0-2); EOSINOPHILS ABSOLUTE AUTO 0.01 K/mm3 (0.00-0.68); EOSINOPHILS PERCENT AUTO 0 % (0-6); Hematocrit 35.4 % (33.0-51.0); Hemoglobin 11.3 g/dL (11.5-16.0); IMMATURE GRAN ABSOLUTE AUTO 0.61 K/mm3 (0.00-0.10); IMMATURE GRAN PERCENT AUTO 4 % (0-1); LYMPHOCYTES ABSOLUTE AUTO 1.37 K/mm3 (0.84-5.20); LYMPHOCYTES PERCENT AUTO 10 % (21-46); MONOCYTES PERCENT AUTO 5 % (4-13); Mean Corpuscular HGB 29.8 pg (26.0-34.0); Mean Corpuscular HGB Conc 31.9 g/dL (31.5-36.5); Mean Corpuscular Volume 93 fL (80-100); Mean Platelet Volume 11.3 fL (9.1-12.4); NEUTROPHILS ABSOLUTE AUTO 11.64 K/mm3 (1.96-9.15); NEUTROPHILS PERCENT AUTO 81 % (41-73); NRBC ABSOLUTE 0.03 K/mm3 (0.00-0.02); NRBC Auto 0.2 /100 WBC (0.0-0.2); Platelet Count 335 K/mm3 (150-400); RDW Coefficient Variation 17.3 % (11.7-14.2); RDW Standard Deviation 57.1 fL (35.1-46.3); Red Blood Cell Count 3.79 M/mm3 (3.80-5.20); White Blood Cell Count 14.38 K/mm3 (4.00-11.30)
[2021-05-18 06:13] LABS: Albumin, Blood 2.2 g/dL (3.4-5.0); Albumin/Globulin Ratio 0.9 (0.8-1.8); Bilirubin, Total 1.9 mg/dL (0.1-1.0); Bun/Creatinine Ratio 28.9 (12.0-20.0); Calcium, Blood 7.9 mg/dL (8.5-10.1); Creatinine, Blood 2.8 mg/dL (0.40-1.00); Globulin, Blood 2.5 g/dL (2.2-4.0); Potassium, Blood 5.5 mmol/L (3.5-5.5); Total Protein, Blood 4.7 g/dL (6.4-8.2)
[2021-05-18 06:45] LABS: SARS-Cov-2 (COVID-19) PCR, MMC NEGATIVE (NEGATIVE)
[2021-05-18 07:50] LABS: Chloride (POC) 97 mmol/L (98-108); Creatinine (POC) 3.1 mg/dL (0.6-1.0); Glucose (ISTAT POC) 336 mg/dL (70-99); Hemoglobin (POC) 6.5 g/dL (12.0-16.0); Potassium (POC) 5.6 mmol/L (3.5-5.5); Sodium (POC) 130 mmol/L (135-148); Total CO2 (POC) 22 mmol/L (21-32)
== END 2021-05-18 12:52 ==
LOC: ER 03:19 → ICUW 09:40 → ER 09:40 → ERHOLD 10:42
PROVIDERS: Emergency Medicine; ADMIT Family Medicine
PROC: 06HY33Z Insertion of Infusion Device into Lower Vein, Percutaneous Approach (ICD-10-PCS; principal; 2021-05-18)
PROC: 0BH18EZ Insertion of Endotracheal Airway into Trachea, Via Natural or Artificial Opening Endoscopic (ICD-10-PCS; 2021-05-18)
PROC: 3E033XZ Introduction of Vasopressor into Peripheral Vein, Percutaneous Approach (ICD-10-PCS; 2021-05-18)
PROC: 5A1935Z Respiratory Ventilation, Less than 24 Consecutive Hours (ICD-10-PCS; 2021-05-18)
PROC: 5A12012 Performance of Cardiac Output, Single, Manual (ICD-10-PCS; 2021-05-18)
DX: I46.9 Cardiac arrest, cause unspecified (principal); K72.00 Acute and subacute hepatic failure without coma; I21.4 Non-ST elevation (NSTEMI) myocardial infarction; N17.9 Acute kidney failure, unspecified; I13.0 Hypertensive heart and chronic kidney disease with heart failure and stage 1 through stage 4 chronic kidney disease, or unspecified chronic kidney disease; E87.5 Hyperkalemia; Z20.822 Contact with and (suspected) exposure to COVID-19; N18.9 Chronic kidney disease, unspecified; E78.5 Hyperlipidemia, unspecified; Z51.5 Encounter for palliative care; E10.22 Type 1 diabetes mellitus with diabetic chronic kidney disease; I46.2 Cardiac arrest due to underlying cardiac condition; I25.10 Atherosclerotic heart disease of native coronary artery without angina pectoris; I27.20 Pulmonary hypertension, unspecified; E03.9 Hypothyroidism, unspecified; I49.01 Ventricular fibrillation; D63.1 Anemia in chronic kidney disease; E86.1 Hypovolemia; I51.3 Intracardiac thrombosis, not elsewhere classified; I50.9 Heart failure, unspecified; Z90.710 Acquired absence of both cervix and uterus; Z95.5 Presence of coronary angioplasty implant and graft; Z98.890 Other specified postprocedural states; Z87.891 Personal history of nicotine dependence; Z79.01 Long term (current) use of anticoagulants; Z79.82 Long term (current) use of aspirin; Z79.899 Other long term (current) drug therapy; Z79.4 Long term (current) use of insulin
CPT/HCPCS: 31500; 36415; 36430; 36556; 36600; 51702; 71045; 74176; 80047; 80053; 81001; 82803; 82947; 83605; 84484; 85014; 85025; 86850; 86900; 86901; 86920; 87040; 87077; 87086; 87186; 92950; 93005; 93010; 93306; 94002; 96365-59; 96366-59; 96367-59; 96368; 96375-59; 96376-59; 99291-25; 99292; C1751; J0282; J0330; J0461; J0610; J1250; J1265; J1815; J2060; J2250; J2704; J3010; J7030; J7050; J7060; P9016; U0004